=== PATIENT | male | born 1965 | race Caucasian/White ===

== ENCOUNTER 2017-05-05 11:56 | Observation (INO) | payer BC, OTHER ==
[~2017-05-05] VITALS: Ht 182.9 cm; Wt 125.2 kg
--- NOTE | ~2017-05-05 | EKG ---
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
[~2017-05-05 11:56] MED LIST: ADDERALL 30 MG30 MG PO; ADULT LOW DOSE81 MG PO; ALAVERT10 MG; AMBIEN 10 MG TA10 MG PO; ATIVAN2 MG PO; CLARITIN10 MG PO; GEODON20 MG PO; GEODON40 MG; GEODON80 MG PO; GLUCOPHAGE1000 MG; GLUCOPHAGE1000 MG PO; GLUCOPHAGE500 MG PO; HYDROCODON-ACE1 EAC4 PO; HYDROCODONE-AP1 EA12 PO; IBUPROFEN 600600 M1 PO; INVOKANA300 MG PO; LAMICTAL 25 MG25 M1; LEVEMIR SUBQ; LISINOPRIL10 MG PO; LORAZEPAM 2MG TA2 M1 PO; MULTI VITAMIN1 EACH PO; NORCO 10-325 T1 EACH PO; NORCO 5-325 TA1 EACH PO; PERCOCET 5-3251 EACH PO; PHENERGAN 25 MG25 M1 PO; PHENERGAN50 MG RC; PROPRANOLOL 1010 M1 PO; PROPRANOLOL 8080 M1 PO; SEROQUEL 100 M100 M1; TOPROL XL100 MG PO; TRADJENTA5 MG PO; VALIUM5 MG PO; ZOFRAN ODT4 MG PO
[2017-05-05 11:57] VITALS: BP 135/80
[2017-05-05 12:18] LABS: ABSOLUTE NEUTROPHILS 3.8 thou/uL (1.4-8.2); BASOPHILS 1.2 % (0.0-2.0); EOSINOPHILS 1.2 % (0.0-3.0); HEMATOCRIT 47.4 % (42.0-52.0); HEMOGLOBIN 16.3 gm/dL (14.0-18.0); LYMPHOCYTES 29.7 % (24.0-44.0); MCH 31.3 pg (26.0-34.0); MCHC 34.5 g/dL (28.0-37.0); MCV 90.6 fL (80.0-100.0); MONOCYTES 9.9 % (1.0-8.0); PLATELET COUNT 134 thou/uL (150-400); RBC 5.23 mil/uL (4.50-6.00); RDW 13.8 % (10.5-14.5); WBC 6.5 thou/uL (4.0-11.0)
[2017-05-05 12:25] LABS: CALCIUM 9.6 mg/dL (8.5-10.1); CREATININE 1.1 mg/dL (0.7-1.3); POTASSIUM 3.9 mmol/L (3.5-5.1)
[2017-05-05 12:27] LABS: MANUAL DIFF NO
[2017-05-05 12:53] LABS: APTT 27.3 Seconds (24.5-32.8); INR 1.1
[2017-05-05 12:57] LABS: PROTIME 11.4 Seconds (9.3-11.4)
[2017-05-05] MEDS ORDERED: GLUCOPHAGE500 MG PO (13:10)
[2017-05-05] MEDS ORDERED: OSTERA TABLET1 EAC1 PO (13:11)
[2017-05-05] MEDS ORDERED: CHILDREN'S ASPI81 M1 PO (13:12)
[2017-05-05 14:11] LABS: ABG SAMPLE TYPE ARTERIAL; BE(vivo) 0 mmol/L (-2 to +3); HCO3 24.8 mmol/L (22.0-26.0); LACTATE 2.83 mmol/L (0.5-2.0); O2(CT) 20.9 mL/dL (15.0-23.0); O2Hb 92.4 % (92.0-98.0); PCO2 40.9 mmHg (35.0-45.0); PO2 71.6 mmHg (80.0-100.0); STICK SITE R.RADIAL; pH 7.401 (7.360-7.450); sO2 94.5 % (92.0-98.0); tCO2 26.1 mmol/L (24.0-30.0)
[2017-05-05 15:08] VITALS: BP 116/71
[2017-05-05 15:19] VITALS: BP 116/71
[2017-05-05 15:24] LABS: CHOLESTEROL 168 mg/dL (<200); HDL CHOLESTEROL 56 mg/dL (>40); LDL CHOLESTEROL 77 mg/dL (<100); TRIGLYCERIDE 175 mg/dL (<150); VLDL 35 mg/dL (<40)
[2017-05-05 16:00] VITALS: BP 121/74
[2017-05-05 20:00] VITALS: BP 125/76
[2017-05-06 06:12] LABS: GLYCOHEMOGLOBIN (HGB A1C) 7.2 % (4.8-5.6)
[2017-05-06 07:36] VITALS: BP 114/75
[2017-05-06] MEDS ORDERED: AMBIEN 5 MG TABL5 M1 PO (10:26)
[2017-05-06 10:41] VITALS: BP 114/75
== END 2017-05-06 11:04 | disposition home or self-care (01) ==
LOC: ER 11:56 → EROBS 13:45 → 4E 13:45
PROVIDERS: Emergency Medicine; Hospitalist
DX: R41.82 Altered mental status, unspecified (principal); F98.8 Other specified behavioral and emotional disorders with onset usually occurring in childhood and adolescence; M79.7 Fibromyalgia; C02.9 Malignant neoplasm of tongue, unspecified; K63.5 Polyp of colon; I10 Essential (primary) hypertension; J45.909 Unspecified asthma, uncomplicated; K21.9 Gastro-esophageal reflux disease without esophagitis; E11.9 Type 2 diabetes mellitus without complications; K01.1 Impacted teeth; Z72.89 Other problems related to lifestyle

== ENCOUNTER 2017-06-15 18:59 | Emergency (ER) | payer BC, OTHER ==
[~2017-06-15] VITALS: Ht 182.9 cm; Wt 125.2 kg
[~2017-06-15 18:59] MED LIST changes: +AMBIEN 5 MG TABL5 M1 PO; +CHILDREN'S ASPI81 M1 PO; +OSTERA TABLET1 EAC1 PO
[2017-06-15 20:06] LABS: ABSOLUTE NEUTROPHILS 4.7 thou/uL (1.4-8.2); BASOPHILS 0.5 % (0.0-2.0); EOSINOPHILS 3.9 % (0.0-3.0); HEMATOCRIT 45.9 % (42.0-52.0); LYMPHOCYTES 21.2 % (24.0-44.0); MCH 31.9 pg (26.0-34.0); MCHC 34.9 g/dL (28.0-37.0); MCV 91.4 fL (80.0-100.0); MONOCYTES 8.1 % (1.0-8.0); PLATELET COUNT 127 thou/uL (150-400); POLYS 66.3 % (36.0-66.0); RBC 5.02 mil/uL (4.50-6.00); RDW 14.4 % (10.5-14.5); WBC 7.1 thou/uL (4.0-11.0)
[2017-06-15 20:11] LABS: MANUAL DIFF NO
[2017-06-15 21:17] VITALS: BP 140/82
== END 2017-06-15 21:18 | disposition home or self-care (01) ==
LOC: ER 18:59
PROVIDERS: Nurse Practitioner
DX: S16.1XXA Strain of muscle, fascia and tendon at neck level, initial encounter (principal); S60.211A Contusion of right wrist, initial encounter; M54.5 Low back pain; F90.9 Attention-deficit hyperactivity disorder, unspecified type; M79.7 Fibromyalgia; I10 Essential (primary) hypertension; J45.909 Unspecified asthma, uncomplicated; K21.9 Gastro-esophageal reflux disease without esophagitis; E11.9 Type 2 diabetes mellitus without complications; F31.9 Bipolar disorder, unspecified; Z79.4 Long term (current) use of insulin; Z90.89 Acquired absence of other organs; Z88.0 Allergy status to penicillin; Z88.2 Allergy status to sulfonamides; V89.2XXA Person injured in unspecified motor-vehicle accident, traffic, initial encounter; Y93.I9 Activity, other involving external motion; Y92.89 Other specified places as the place of occurrence of the external cause; Y99.8 Other external cause status

== ENCOUNTER → 2020-09-14 | Outpatient (CLI) | payer OTHER ==
[~2020-09-14] MED LIST changes: +GLUMETZA1000 PO; +HYDROCODON-ACE1 EAC5 PO; +TOPAMAX50 MG PO; +ZESTRIL40 MG PO
== END ==
LOC: HYPER 07:59
PROVIDERS: ATTEND Emergency Medicine Emergency Medical Services
DX: E11.621 Type 2 diabetes mellitus with foot ulcer (principal); L97.522 Non-pressure chronic ulcer of other part of left foot with fat layer exposed; L89.626 Pressure-induced deep tissue damage of left heel; L97.421 Non-pressure chronic ulcer of left heel and midfoot limited to breakdown of skin; E11.40 Type 2 diabetes mellitus with diabetic neuropathy, unspecified; E11.69 Type 2 diabetes mellitus with other specified complication; M86.172 Other acute osteomyelitis, left ankle and foot; J45.909 Unspecified asthma, uncomplicated; R60.9 Edema, unspecified; L84 Corns and callosities; I10 Essential (primary) hypertension; M06.9 Rheumatoid arthritis, unspecified; F41.9 Anxiety disorder, unspecified; F32.9 Major depressive disorder, single episode, unspecified; Z87.891 Personal history of nicotine dependence; Z85.89 Personal history of malignant neoplasm of other organs and systems; Z79.4 Long term (current) use of insulin; Z98.1 Arthrodesis status

== ENCOUNTER 2020-09-15 15:36 | Inpatient (IN) | payer OTHER ==
[~2020-09-15] VITALS: Ht 180.3 cm; Wt 122.9 kg
--- NOTE | ~2020-09-15 | O ---
[facility] [place] [address] OPERATIVE REPORT Name: RUEL LEE Room #: 456-P ADM IN M.R.#: [id number] Admission: 09/15/20 Attend Phys: Zac Cortes MD Discharge: Date of : 61 Report #: [id number] THIS REPORT FOR: cc: Diego Calvo MD, Steven A. MD VanDenBerghe, Gregory R. MD ~ DATE OF SERVICE: 09/19/2020 PREOPERATIVE DIAGNOSES: Left foot plantar based ulcers, fourth and fifth ray osteomyelitis, forefoot cellulitis. POSTOPERATIVE DIAGNOSES: Left foot plantar based ulcers, fourth and fifth ray osteomyelitis, forefoot cellulitis. PROCEDURE PERFORMED: Left foot debridement of plantar based ulcers. SURGEON: Red Davis MD VP INFORMATION TECHNOLOGY: Binta Edmondson PA-C. ANESTHESIA: General per LMA. FLUIDS: Please see anesthesia records. ESTIMATED BLOOD LOSS: Approximately 25 mL. DESCRIPTION OF PROCEDURE: I reviewed treatment options with the patient and his . We discussed his underlying diabetes, chronic nature of his foot condition as well as his ultrasound studies and most recent MRI. We discussed with the ulcers as well as the underlying osteomyelitis that it would be highly unlikely that a soft tissue type debridement procedure alone would aid to any significant degree in healing of his underlying osteomyelitis, cellulitis and ulcers. We reviewed that a debridement or resection of the involved bony structures would lead to a higher likelihood of being able to rid the infection, but with near complete involvement of the fourth metatarsal noted on the MRI and the location of his ulcers that may lead to difficulty in having adequate soft tissues to close around the remaining intact more medially based foot as well as providing a stable platform for ambulating. We discussed one could consider an amputation more proximally based as well, which would involve a below-knee amputation. This may provide him the quickest means with a return to ambulation. As we discussed these various options, the patient and his elected to consent only to a soft tissue debridement and did not want any bony resection or amputation. We discussed if his infection persists and/or worsens that this may be, requirement. We discussed potential spread of this infection further including into the bloodstream to where he could become more ill or [facility] [address] [place] [address] OPERATIVE REPORT Name: RUEL LEE Room #: 456-P ADM IN .R.#: [id number] Admission: 09/15/20 Attend Phys: Zac Cortes MD Discharge: Date of : 61 Report #: [id number] septic in nature. They were aware of these potential complications and wished to continue with the IV antibiotics, wound care treatments and just a soft tissue debridement of his plantarly based wounds. At this point, he was brought back to the operative suite, and after induction of satisfactory general anesthesia, the bad tissue or ulcers were debrided sharply back to punctate bleeding tissues. This was through the dermal layer on both of these ulcers, which measured approximately 3 x 3 in 1 location and 5 x 6 cm in the other location. There is a small amount of subq/dermal duskiness about the heel, although no discrete ulcer was noted. Extensive soft tissue edema within the forefoot extending up into the leg was noted. There appeared to be no other areas of soft tissue in need of debridement. No abscess type collections were noted and based on the request no bony resection, amputation or debridement was performed. We discussed continuing wound care involvement and depending on how his bone and soft tissues respond to continued treatment, we discussed the potential high likelihood of requiring further surgical intervention. By: 1502 1616 Red Davis MD /nt
[~2020-09-15 15:36] MED LIST changes: -GLUMETZA1000 PO; -HYDROCODON-ACE1 EAC5 PO; -TOPAMAX50 MG PO; -ZESTRIL40 MG PO
[2020-09-15 15:39] VITALS: BP 137/81
[2020-09-15 15:58] LABS: ABSOLUTE NEUTROPHILS 3.5 thou/uL (1.4-8.2); BASOPHILS 0.4 % (0.0-2.0); EOSINOPHILS 1.9 % (0.0-3.0); HEMATOCRIT 37.9 % (42.0-52.0); HEMOGLOBIN 12.8 gm/dL (14.0-18.0); MCH 32.3 pg (26.0-34.0); MCHC 33.8 g/dL (28.0-37.0); MCV 95.6 fL (80.0-100.0); MONOCYTES 8.1 % (1.0-8.0); PLATELET COUNT 151 thou/uL (150-400); POLYS 59.6 % (36.0-66.0); RBC 3.96 mil/uL (4.50-6.00); RDW 12.6 % (10.5-14.5); WBC 5.8 thou/uL (4.0-11.0)
[2020-09-15 16:13] LABS: CALCIUM 9.2 mg/dL (8.5-10.1); POTASSIUM 3.3 mmol/L (3.5-5.1)
[2020-09-15 16:16] LABS: ALBUMIN 2.8 g/dL (3.4-5.0); DIRECT BILIRUBIN 0.3 mg/dL (<0.1-0.2); TOTAL BILIRUBIN 0.8 mg/dL (0.2-1.0); TOTAL PROTEIN 6.8 g/dL (6.4-8.2)
[2020-09-15] MEDS ORDERED: ZESTRIL40 MG PO (16:39)
[2020-09-15] MEDS ORDERED: GLUMETZA1000 PO (16:40)
[2020-09-15] MEDS ORDERED: GEODON80 MG PO (16:40)
[2020-09-15] MEDS ORDERED: TOPAMAX50 MG PO (16:41)
[2020-09-15] MEDS ORDERED: HYDROCODON-ACE1 EAC5 PO (16:41)
[2020-09-15 17:57] LABS: URINE BILIRUBIN NEGATIVE (Negative); URINE BLOOD NEGATIVE (Negative); URINE CLARITY CLEAR; URINE COLOR YELLOW; URINE GLUCOSE-RANDOM* NEGATIVE (Negative); URINE KETONES NEGATIVE (Negative); URINE LEUKOCYTES-REFLEX NEGATIVE (Negative); URINE NITRITE-REFLEX NEGATIVE (Negative); URINE PROTEIN (DIPSTICK) NEGATIVE (Negative)
[2020-09-16 02:03] LABS: HEMATOCRIT 34.7 % (42.0-52.0); HEMOGLOBIN 11.9 gm/dL (14.0-18.0); MCH 32.6 pg (26.0-34.0); MCHC 34.3 g/dL (28.0-37.0); MCV 95.1 fL (80.0-100.0); RBC 3.65 mil/uL (4.50-6.00); RDW 12.7 % (10.5-14.5)
[2020-09-16 02:14] LABS: CALCIUM 8.9 mg/dL (8.5-10.1); CREATININE 0.9 mg/dL (0.7-1.3); MAGNESIUM 1.2 mg/dL (1.8-2.4); POTASSIUM 3.6 mmol/L (3.5-5.1)
[2020-09-16 02:23] LABS: APTT 28.3 Seconds (24.5-32.8); INR 1.2; PROTIME 12.7 Seconds (9.3-11.4)
[2020-09-16 06:44] VITALS: BP 100/61
[2020-09-16 07:27] VITALS: BP 99/56
--- NOTE | 2020-09-16 09:34 | NUR ---
ASSUMED PT CARE AT 0715 UPON TRANSFER FROM ED. PT HAS TWO WOUNDS ON THE BOTTOM OF THE LEFT FOOT, MEASURING [id number] AND 3YTO7MG. WOUND PICTURES TAKEN, WOUND DRESSED IT HAD A SMALL AMOUNT OF BLOOD. PT A&OX4, PLEASANT AND COOPERATIVE. CALLS OUT WHEN NEEDED. REPORTS PAIN IN THE LEFT FOOT WELL GENERALIZED PAIN FROM FIBROMYALGIA. FALLS PRECAUTIONS IN PLACE.
[2020-09-16 15:27] VITALS: BP 123/60
[2020-09-16 20:12] VITALS: BP 117/64
[2020-09-17 05:20] VITALS: BP 134/79
--- NOTE | 2020-09-17 07:14 | HC ---
[facility] [place] [address] CONSULTATION Name: RUEL LEE Room #: 456-P ADM IN M.R.#: [id number] Admission: 09/15/20 Attend Phys: Zac Cortes MD Discharge: Date of : 61 Report #: [id number] THIS REPORT FOR: cc: Diego Calvo MD, Steven A. MD Barry,Ananda Romero MD ~ DATE OF SERVICE: 09/16/2020 INFECTIOUS DISEASE CONSULTATION ATTENDING PHYSICIAN: Dr. Cortes REASON FOR EVALUATION: Diabetic foot ulcer, likely osteomyelitis involving the left fourth toe. HISTORY OF SUBJECTIVE: Chart reviewed, patient examined. This is a 54-year-old gentleman with known history of diabetes mellitus, has been complicated by peripheral neuropathy. He has had a longstanding wound associated with his foot, had been followed as an outpatient. He was [facility] more recently and he was referred to the Emergency Room, felt that it was progressive and likely had deep seated infection. He denies significant systemic illness. His blood sugars were mildly elevated. No pulmonary or gastrointestinal related complaints. Found to have an elevated lactic acid of 3.7. Plain film of the foot, there is question of fourth metatarsal extending to the fourth MTP joint near the proximal phalanx changes that would question osteomyelitis. Sed rate was 63. He did have coronavirus testing, which was negative. He was empirically started on vancomycin. Cultures of the blood and fluid are pending. Gram-stain is not available. ALLERGIES: PENICILLIN WHICH HE DESCRIBES WHAT SOUNDS LIKE A TYPE 1 OR ANAPHYLACTIC REACTION AND SULFA. CURRENT MEDICATIONS: Include insulin glargine, topiramate, lisinopril, metformin, insulin lispro, vancomycin, lorazepam, ziprasidone, hydrocodone. PAST MEDICAL HISTORY: Diabetes mellitus complicated by peripheral neuropathy, chronic ulceration involving his left foot. He has a carcinoma of the tongue, radiation surgery in 1998, hypertension, asthma, reflux, bipolar disease, ADD, fibromyalgia. SOCIAL HISTORY: Nonsmoker, past ethanol, no illicit drug use. FAMILY HISTORY: Noncontributory. REVIEW OF SYSTEMS: Otherwise unremarkable, except as noted above. [address] [address] CONSULTATION Name: RUEL LEE Room #: 456-P [facility] IN ..#: [id number] Admission: 09/15/20 Attend Phys: Zac Cortes MD Discharge: Date of : 61 Report #: [id number] PHYSICAL EXAMINATION: GENERAL: Reasonably comfortable, mild distress, adequately nourished. VITAL SIGNS: Temperature 98.5, pulse 87, respirations 18, blood pressure 99/56. SKIN: Warm, dry, no rashes. HEENT: Normocephalic. Extraocular muscles are intact. NECK: Supple. LUNGS: Clear breath sounds bilaterally. HEART: Regular. I do not appreciate murmur. ABDOMEN: Soft, obese, nontender. EXTREMITIES: Got a compression dressing over the left distal lower extremity to include the leg, appears to have a general edema bilaterally. GENITOURINARY AND RECTAL: Deferred. LABORATORY DATA: Recent lactic acid of 2.1. Electrolytes: Sodium 141, potassium 3.6, chloride 107, bicarbonate is 24, anion gap of 10, BUN and creatinine 8 and 0.9, glucose of 171. CBC: White count 5.0, H and H 11.9 and 34.7, platelets of 124. Coronavirus testing was negative. Urinalysis was otherwise unremarkable. No proteinuria. Sed rate of 63. ASSESSMENT AND PLAN: Suspected deep infection, likely osteomyelitis involving the fourth left metatarsal. We will continue empiric therapy with vancomycin; add some gram-negative coverage as well, pending the results of the culture. Noted Orthopedic Surgery to evaluate. We will await their recommendations. Defer MRI evaluation pending their impression whether they think they are needed to further assist in their decision making. We will follow. <ELECTRONICALLY SIGNED> By: Ananda Goss MD 09/17/20 0714 0917 1059 Ananda Goss MD /nt
--- NOTE | 2020-09-17 07:56 | HC ---
[facility] [place] [address] CONSULTATION Name: RUEL LEE Room #: 456-P ADM IN M.R.#: [id number] Admission: 09/15/20 Attend Phys: Zac Cortes MD Discharge: Date of : 61 Report #: [id number] THIS REPORT FOR: cc: Diego Calvo MD, Steven A. MD Althoff,Booker Leos MD ~ DATE OF SERVICE: 09/16/2020 CHIEF COMPLAINT: Diabetic foot ulceration. HISTORY OF PRESENT ILLNESS: This is a 54-year-old male patient who has been followed by Dr. Piyush Damon, was found to have osteomyelitis of the right fourth and fifth metatarsals. Dr. Damon had asked him to see me in the clinic, which I did on Thursday. At that time, I recommended admission. The patient was not quite able to make admission on Thursday due to some other professional issues that he needed to take care of. He arrived yesterday evening in the Emergency Department, was admitted. He has had previous MRI that demonstrated osteomyelitis. He has been seen by Orthopedics. There has been a suggestion of possible below-knee amputation. The patient is quite worried about this, but understands he will need some sort of surgical intervention for treatment of the osteomyelitis. PAST MEDICAL HISTORY: Positive for history of ADD, fibromyalgia. He has a history of tongue cancer, hypertension, type 2 diabetes mellitus, history of bipolar disorder. FAMILY HISTORY: Positive for diabetes. SOCIAL HISTORY: Negative for alcohol or tobacco use. 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 MEDICATIONS: Includes lorazepam, Adderall, Levemir, Ostera, Zestril, Glumetza, Geodon, Topamax. ALLERGIES: PENICILLIN AND SULFA. REVIEW OF SYSTEMS: CONSTITUTIONAL: The patient denies fever, chills or weight loss. NEUROLOGICAL: The patient denies focal weakness. Does have peripheral neuropathy. ENT: The patient denies earache, nasal drainage or sore throat. CARDIOVASCULAR: The patient denies chest pain, palpitations or diaphoresis. PULMONARY: The patient denies cough or shortness of breath. GASTROINTESTINAL: The patient denies nausea, vomiting, diarrhea or abdominal pain. [facility] [address] [place] [address] CONSULTATION Name: RUEL LEE Room #: 456-P [facility] IN [facility].#: [id number] Admission: 09/15/20 Attend Phys: Zac Cortes MD Discharge: Date of : 61 Report #: [id number] ORTHOPEDIC: The patient does note the ulcerations of his left foot as well as a small area on the right fifth MTP. Other systems in a 14-point review of systems are negative. PHYSICAL EXAMINATION: VITAL SIGNS: At this time include temperature 36.8, pulse 87, respiratory rate 18, blood pressure 123/60. GENERAL: A well-developed, well-nourished male patient who appears to be in minimal distress. HEENT: Head normocephalic. Nose and throat clear. NECK: Supple. LUNGS: Clear. ABDOMEN: Soft. Bowel sounds are present. EXTREMITIES: Examination of the extremities demonstrate palpable distal pulses. His feet are a bit warm and erythematous, more so on the left than on the right. He has a necrotic ulceration at the base of the right fifth metatarsal as well as some ulceration and small eschar along the left medial heel. He has a preulcer callus and soft area on the right fifth MTP as well. NEUROLOGIC: The patient is alert, oriented and appropriate. LABORATORY STUDIES: Include white blood cell count 5001, hemoglobin 11.9, hematocrit 34.7. Sodium 141, potassium 3.6, chloride 107, CO2 of 24, BUN 8, creatinine 0.9, glucose 171. X-ray demonstrates osteomyelitis, fourth and fifth metatarsal. Outpatient MRI demonstrates osteomyelitis, fourth and fifth metatarsal. CLINICAL IMPRESSION: 1. Diabetic foot ulceration, left foot, Barnett 3 with underlying osteomyelitis of the fourth and fifth metatarsals. 2. Type 2 diabetes mellitus with peripheral neuropathy. 3. Preulceration callus to the right fifth MTP. RECOMMENDATIONS: At this point in time, the patient is quite concerned, the orthopedic surgeon has made the suggestion of a possible below-knee amputation. We will recheck an MRI of both feet, in particular looking for any osteomyelitic changes or abscess to the heel area. The patient would like if at all possible to preserve some portion of his foot for ambulatory purposes. We will place dry dressings on for now. I appreciate being asked to see him in consultation. <ELECTRONICALLY SIGNED> By: Booker Jay MD 09/17/20 0756 1632 52 Booker Jay MD /nt
--- NOTE | 2020-09-17 07:57 | NUR ---
Assumed pt care at 1900. A/OX4,VSS. Continent of B&B,voiding per urinal. Dsg in place on left foot C/D/I. Pt to get an MRI of bilateral feet,paperwork completed and faxed. IV abts infusing via LAC w/o any problems.
[2020-09-17 08:04] VITALS: BP 125/82
--- NOTE | 2020-09-17 09:45 | NUR ---
Assess due to pt with diabetic foot wound x 2. Surgical consult pending. Pt stated hungry this am, breakfast tray was on window seal and RN assisted with set up. Pt not very talkative, not making eye contact during conversation. States BG are good at home and no questions reqarding diet. Tries to eat mostly protein. Low nutrition risk
--- NOTE | 2020-09-17 11:47 | NUR ---
Received awake on bed. Due medications given as prescribed, able to swallow meds w/o difficulty. On room air. Vital signs stable. On MS, not on telemetry; no complains and signs of chest pain, crushing sensation and heaviness. On carb controlled diet- tolerating well; no nausea, no vomiting and no abdominal pain noted. On blood sugar monitoring, taken and recorded accordingly. Continent of bowel and bladder, using urinal at times. With SL at L AC- on IV antibiotics. With L foot wound, dressing C/D/I; seen by wound team today; dressing changed. Complained of pain, due PRN pain meds given as prescribed. Pt for MRI of bilateral feet- screening form completed and faxed; as per MRI staff all MRI needs approval by general medical practitioner- Wound nurse Adriana updated. Followed up with MRI at 1218pm- still ongoing outpatient procedures, will call unit once it's pt's turn- pt updated. To continue monitoring patient.
[2020-09-17 16:20] VITALS: BP 132/87
[2020-09-17 20:26] VITALS: BP 132/78
--- NOTE | 2020-09-18 04:45 | NUR ---
ASSUMED CARE OF PT AT 1900. PT IS A/O X4 AND IS UP WITH SBA TO THE BR. NO INSULIN GIVEN AT HS IS NOT INDICATED. MEDICATIONS GIVEN PER MAR. ROOM AIR. DRSGS TO LEFT FOOT ARE C/D/I. C/O PAIN. PRN PAIN MEDICATION GIVEN DIRECTED. FALL PRECAUTIONS ARE IN PLACE, CALL LIGHT IS WITHIN REACH. WILL CONTINUE TO MONITOR.
[2020-09-18 10:28] VITALS: BP 117/67
--- NOTE | 2020-09-18 13:43 | NUR ---
Pt down at pre-op during shift change this morning. Back to freedman around 8:30am. Received awake on bed. Due medications given as prescribed. On room air. Vital signs stable. On MS, not on telemetry; no complains and signs of chest pain, crushing sensation and heaviness. Assisted in ADLs. On nothing per orem- pt informed and aware; no nausea, no vomiting and no abdominal pain noted. On blood sugar monitoring, taken and recorded accordingly. Continent of bowel and bladder, able to use the urina. With SL at R FA- intact and flushing well; on IV antibiotics. Falls bundle in place. With wound at L foot- no dressing in place; changed today. Complained of pain, due PRN pain meds given as prescribed. MRI called, brought pt down via wheelchair; MRI staff called and said pt initially scheduled to have bilateral feet MRI; since R foot is intact and no open area, they said no indication to have it done- thus cancelled and will just do L foot- Wound team informed. Back to room safely. Diet resumed for lunch and dinner since pt to have surgery tomorrow afternoon instead. Pt seen and examined by Dr Bosch this AM. To continue monitoring patient.
[2020-09-18 14:15] VITALS: BP 113/72
--- NOTE | 2020-09-18 14:46 | NUR ---
PT ADMITTED RELATED TO DIABETIC FOOT ULCER, OSTEO, HYPERGLYCEMIA. CM REVIEWED CHART AND SPOKE WITH CARE TEAM. CM HAS ATTEMPTED TO SPEAK WITH PT VIA PHONE REPEATEDLY SINCE ADMISSION WITH NO ANSWER. CM ATTEMPTED TO VIST PT AT BEDSIDE THIS DAY PT WAS SLEEPING. CM SPOKE WITH PT'S . SHE INDICATED THEY RESIDE IN A HOUSE WITH 12 STEPS TO ENTER IN BACK, 10 THROUGH GARAGE, AND THREE DIFFICULT STEPS IN FRONT. SPOUSE INDICATED THAT PT HAD USED A CANE TO ASSIST WITH MOBILITY CHIEF SECURITY AND SAFETY OFFICER. SHE INDICATED THAT SHE HAD DONE WC AND ASSISTED PT WITH SOCKS AND SHOES CHIEF SECURITY AND SAFETY OFFICER. SHE STATED THAT PT HAD OTHERWISE BEEN INDEPENDENT WITH ADLS. SHE INDICATED NO HH HX. SHE STATED THAT PT IS FRUSTRATED HE DOESN'T KNOW WHO HIS DOCTORS ARE AND WHAT KIND OF SURGERY HE IS HAVING AT 1400 TOMORROW. CM TO CONVEY THIS TO CARE TEAM. PT HAD MRI TODAY. POSSIBLE BKA OR DEBRIDEMENT. CM TO FOLLOW INDICATED WITH DC PLANNING.
[2020-09-18 19:34] VITALS: BP 125/82
--- NOTE | 2020-09-19 04:35 | NUR ---
ASSUMED CARE OF PT AT 0300. PT IS A/O X4 AND IS UP WITH ASSISTANCE TO THE BR. PT IS ON ROOM AIR AND IS CURRENTLY MS STATUS. DRSG TO LEFT FOOT IS C/D/I. NEW IV PLACED IN LEFT FA. NPO SINCE MIDNIGHT AWAITING PROCEDURE IN THE AM. VSS. FALL PRECAUTIONS IMPLEMENTED, CALL LIGHT IS WITHIN REACH.
[2020-09-19 07:55] VITALS: BP 95/65
[2020-09-19 16:25] VITALS: BP 126/74
[2020-09-19 17:10] VITALS: BP 117/68
[2020-09-19 18:15] VITALS: BP 121/76
--- NOTE | 2020-09-19 19:54 | NUR ---
Received awake on bed. On nothing per orem, mouth swabs offered. On MS, not on telemetry; no complains and signs of chest pain, crushing sensation and heaviness. On room air. Vital signs stable. On blood sugar monitoring, taken and recorded accordingly. Continent of bowel and bladder, able to use urinal- output measured and recorded accordingly. Falls bundle in place. With SL at L FA- on IV antibiotics. Dressing at L foot- C/D/I- pt refused dressing change today, will be going down for OR this afternoon. Assisted in ADLs. No nausea, no vomiting and no abdominal pain noted. Pt brought down to OR this afternoon; tolerated procedure well; vital signs post op stable. Post op dressing checked- C/D/I- no signs of bleeding noted; kept elevated; pt informed re: weight bearing status- heel wt bearing. Pt's visited this PM- update given. Complained of pain, due PRN pain meds given as prescribed. To continue monitoring patient.
[2020-09-19 20:20] VITALS: BP 130/76
--- NOTE | 2020-09-20 07:24 | NUR ---
VSS-AFEBRILE. LUNGS CLEAR-ROOM AIR. PAIN WELL CONTROLLED WITH IV AND PO PAIN MEDS. LEFT FOOT DRESSING DRY AND INTACT.
[2020-09-20 07:44] VITALS: BP 110/64
--- NOTE | 2020-09-20 10:04 | NUR ---
called and asked about the discharge time: [phone]).
[2020-09-20] MEDS ORDERED: LEVOFLOXACIN500 MG PO ×2 (11:24→13:37)
[2020-09-20] MEDS ORDERED: CUBICIN500 MG IVPB (11:24)
[2020-09-20 11:34] VITALS: BP 110/64
[2020-09-20 12:28] VITALS: BP 110/64
--- NOTE | 2020-09-20 13:03 | NUR ---
VASCULAR ACCESS CONSULTED FOR PICC FOR HOME ABX. DISCUSSED BENEFITS AND RISK OF PICC WITH PT, VERBALIZED UNDERSTANDING. PT'S LABS,MEDS,HX ,ORDER AND CONSENT VERIFIED. REN LOPEZ WAS WIDELY PATENT WITH USG. 4FR SL POWER PICC TRIMMED TO 45CM INSERTED TO 0CM. PT TOLERATED WELL. STAT CXR ORDERED
[2020-09-20] MEDS ORDERED: VANCOMYCIN IV ×2 (13:24→13:27)
[2020-09-20] MEDS ORDERED: VANCOMYCIN1.5 GM/300 IV (13:36)
--- NOTE | 2020-09-20 13:40 | NUR ---
CXR CONFIRMED PICC IN SVC. PICC RELEASED FOR IMMEDIATE USE PER PROTOCOL TO CAROLE BEE
--- NOTE | 2020-09-20 14:06 | NUR ---
Patient being discharged home today with [facility] home infusion. DCP has been in touch and out of pocket expense will be 59.78 per week and billed under the patients part D coverage. ID and Hospitalist have confirmed orders. Bedside teaching with patient taking place and will be taught upon discharge to home. [facility] has accepted and will be out to see patient including admissions assessment and first lab draw on 09-24-2020. DCP confirmed all orders have been faxed and accepted by both [facility] and [email or web address]. Called and spoke with spouse Awilda Gallegos at [phone] and explained above. voiced an understanding. Spoke with the nurse Braeden and confirmed above who will call for pickup time and which door location.
[2020-09-20 14:12] VITALS: BP 110/64
--- NOTE | 2020-09-20 14:15 | NUR ---
Patient discharge, medication prescription was sent to patient't pharmacy.
--- NOTE | 2020-09-20 14:27 | NUR ---
Patient discharged with PICC.
== END 2020-09-20 14:30 | disposition home health service (06) | DRG 623 ==
LOC: ER 15:36 → 4W 18:13 → EROBS 18:13 → 4W 09-16 07:07
PROVIDERS: Nurse Practitioner; ADMIT Internal Medicine; ATTEND Internal Medicine
PROC: 0JBR0ZZ Excision of Left Foot Subcutaneous Tissue and Fascia, Open Approach (ICD-10-PCS; principal; 2020-09-19)
PROC: 02HV33Z Insertion of Infusion Device into Superior Vena Cava, Percutaneous Approach (ICD-10-PCS; 2020-09-20)
DX: E11.622 Type 2 diabetes mellitus with other skin ulcer (principal); L03.116 Cellulitis of left lower limb; L97.429 Non-pressure chronic ulcer of left heel and midfoot with unspecified severity; E44.0 Moderate protein-calorie malnutrition; M86.172 Other acute osteomyelitis, left ankle and foot; E11.69 Type 2 diabetes mellitus with other specified complication; Z20.828 Contact with and (suspected) exposure to other viral communicable diseases; I10 Essential (primary) hypertension; J45.909 Unspecified asthma, uncomplicated; F31.9 Bipolar disorder, unspecified; E11.65 Type 2 diabetes mellitus with hyperglycemia; E11.42 Type 2 diabetes mellitus with diabetic polyneuropathy; E66.01 Morbid (severe) obesity due to excess calories; K21.9 Gastro-esophageal reflux disease without esophagitis; G89.4 Chronic pain syndrome; M79.7 Fibromyalgia; F98.8 Other specified behavioral and emotional disorders with onset usually occurring in childhood and adolescence; Z79.891 Long term (current) use of opiate analgesic; Z87.81 Personal history of (healed) traumatic fracture; Z79.899 Other long term (current) drug therapy; Z86.010 Personal history of colon polyps; Z88.0 Allergy status to penicillin; Z88.2 Allergy status to sulfonamides; Z83.3 Family history of diabetes mellitus; Z68.37 Body mass index [BMI] 37.0-37.9, adult
CPT/HCPCS: 10040; 27000; 50010; 50101; 50386; 53000; 56524; 56525; 56527; 57091; 57180; 62110; 62900; 70005

== ENCOUNTER → 2020-09-25 | Outpatient (CLI) | payer OTHER ==
[~2020-09-25] MED LIST changes: +CUBICIN500 MG IVPB; +GLUMETZA1000 PO; +HYDROCODON-ACE1 EAC5 PO; +LEVOFLOXACIN500 MG PO; +TOPAMAX50 MG PO; +VANCOMYCIN IV; +VANCOMYCIN1.5 GM/300 IV; +ZESTRIL40 MG PO
== END ==
LOC: HYPER 10:46
PROVIDERS: ATTEND Emergency Medicine
DX: E11.621 Type 2 diabetes mellitus with foot ulcer (principal); L97.522 Non-pressure chronic ulcer of other part of left foot with fat layer exposed; L89.626 Pressure-induced deep tissue damage of left heel; L97.421 Non-pressure chronic ulcer of left heel and midfoot limited to breakdown of skin; L84 Corns and callosities; E11.40 Type 2 diabetes mellitus with diabetic neuropathy, unspecified; E11.69 Type 2 diabetes mellitus with other specified complication; M86.172 Other acute osteomyelitis, left ankle and foot; E66.9 Obesity, unspecified; J45.909 Unspecified asthma, uncomplicated; R60.9 Edema, unspecified; I10 Essential (primary) hypertension; M06.9 Rheumatoid arthritis, unspecified; F41.9 Anxiety disorder, unspecified; F31.9 Bipolar disorder, unspecified; Z87.891 Personal history of nicotine dependence; Z85.89 Personal history of malignant neoplasm of other organs and systems; Z79.4 Long term (current) use of insulin; Z98.1 Arthrodesis status; Z68.36 Body mass index [BMI] 36.0-36.9, adult; Z89.422 Acquired absence of other left toe(s)

== ENCOUNTER → 2020-10-05 | Outpatient (CLI) | payer OTHER | LOC: HYPER 08:01 | PROVIDERS: ATTEND Emergency Medicine Emergency Medical Services | DX: E11.621 Type 2 diabetes mellitus with foot ulcer (principal); L97.522 Non-pressure chronic ulcer of other part of left foot with fat layer exposed; L97.511 Non-pressure chronic ulcer of other part of right foot limited to breakdown of skin; L89.626 Pressure-induced deep tissue damage of left heel; L97.421 Non-pressure chronic ulcer of left heel and midfoot limited to breakdown of skin; E11.69 Type 2 diabetes mellitus with other specified complication; M86.172 Other acute osteomyelitis, left ankle and foot; R60.9 Edema, unspecified; L84 Corns and callosities; R21 Rash and other nonspecific skin eruption; E66.9 Obesity, unspecified; M19.90 Unspecified osteoarthritis, unspecified site; J45.909 Unspecified asthma, uncomplicated; I10 Essential (primary) hypertension; F41.9 Anxiety disorder, unspecified; Z68.36 Body mass index [BMI] 36.0-36.9, adult; Z79.4 Long term (current) use of insulin; Z89.422 Acquired absence of other left toe(s); E11.40 Type 2 diabetes mellitus with diabetic neuropathy, unspecified; M06.9 Rheumatoid arthritis, unspecified; F31.9 Bipolar disorder, unspecified; Z87.891 Personal history of nicotine dependence ==

== ENCOUNTER → 2020-10-19 | Outpatient (CLI) | payer OTHER ==
--- NOTE | 2020-10-22 15:56 | HC ---
[facility] [place] [address] CONSULTATION Name: RUEL LEE Room #: REG [facility].#: [id number] Admission: 10/19/20 Attend Phys: Booker Jay MD Discharge: Date of : 61 Report #: [id number] THIS REPORT FOR: cc: Diego Calvo MD, Steven A. MD Couchonnal, Luis F. MD ~ DATE OF SERVICE: 10/20/2020 ELECTROPHYSIOLOGY CONSULTATION REASON FOR CONSULTATION: Arrhythmias. HISTORY OF PRESENT ILLNESS: The patient is a gentleman admitted on 09/21 with COVID pneumonia. The patient was seen for atrial fibrillation earlier this hospitalization by general Cardiology when he initially came in with COVID pneumonia, had some atrial fibrillation, started on anticoagulation, had a GI bleed. Subsequently, he has had a complex hospitalization with pneumothoraces bilaterally, trach, PEG and sepsis. Yesterday, he had some short bursts of atrial tachycardia on the monitor. There was also some SVT with aberration noted. There is no evidence of recurrent atrial fibrillation. REVIEW OF SYSTEMS: Unable to obtain due to intubated state. PAST MEDICAL HISTORY: As above. SOCIAL HISTORY: Noncontributory. FAMILY HISTORY: Noncontributory. ALLERGIES: Reviewed. MEDICATIONS: Reviewed. PHYSICAL EXAMINATION: VITAL SIGNS: Stable. GENERAL: Intubated, sedated. HEENT: Oropharynx membranes are moist. NECK: Supple. HEART: Regular rate and rhythm with no ectopy or murmurs. LUNGS: Clear bilaterally. ABDOMEN: Soft, nontender. EXTREMITIES: No clubbing, cyanosis, edema. NEUROLOGIC: Cranial nerves 2-12 are intact. ASSESSMENT: Supraventricular tachycardia. [facility] [address] [place] [address] CONSULTATION Name: RUEL LEE Room #: [facility].#: [id number] Admission: 10/19/20 Attend Phys: Booker Jay MD Discharge: Date of : 61 Report #: [id number] PLAN: The patient with a short burst of atrial tachycardia. We will recommend beta jaya therapy and echo on Thursday. We will follow. <ELECTRONICALLY SIGNED> By: Thomas Huff MD 10/22/20 1556 1125 1245 Thomas Huff MD /nt
== END ==
LOC: HYPER 08:10
PROVIDERS: ATTEND Emergency Medicine Emergency Medical Services
DX: E11.621 Type 2 diabetes mellitus with foot ulcer (principal); L97.522 Non-pressure chronic ulcer of other part of left foot with fat layer exposed; L89.626 Pressure-induced deep tissue damage of left heel; L97.421 Non-pressure chronic ulcer of left heel and midfoot limited to breakdown of skin; L97.511 Non-pressure chronic ulcer of other part of right foot limited to breakdown of skin; E11.69 Type 2 diabetes mellitus with other specified complication; M86.172 Other acute osteomyelitis, left ankle and foot; E11.40 Type 2 diabetes mellitus with diabetic neuropathy, unspecified; R60.9 Edema, unspecified; L84 Corns and callosities; J45.909 Unspecified asthma, uncomplicated; I10 Essential (primary) hypertension; M06.9 Rheumatoid arthritis, unspecified; E66.9 Obesity, unspecified; F41.9 Anxiety disorder, unspecified; F31.9 Bipolar disorder, unspecified; Z68.36 Body mass index [BMI] 36.0-36.9, adult; Z79.4 Long term (current) use of insulin; Z87.891 Personal history of nicotine dependence; Z89.422 Acquired absence of other left toe(s)

== ENCOUNTER → 2020-10-26 | Outpatient (CLI) | payer OTHER ==
[~2020-10-26] MED LIST changes: +MERREM500 MG IV
[2020-10-26 08:39] VITALS: BP 99/56
--- NOTE | 2020-10-26 09:29 | NUR ---
IN FOR 1ST DOSE OF MEROPENEM FOR LEFT FOOT OSTEOMYELITIS. STATED FEELING WELL. DENIED DIARRHEA, NAUSEA, FEVER, CHILLS. PICC LINE IN PLACE TO [facility]. UNABLE TO GET BLOOD RETURN, FLUSHED EASILY. INFUSED MEROPENEM OVER 30 MINUTES AND TOLERATED WELL. CHANGED PICC DRESSING. SITE WNL. DISMISSED AMBULATORY TO WORK IN STABLE CONDITION. WEARING AN OPEN TOE BOOT ON LEFT FOOT. SCHEDULED TO RETURN NEXT THURSDAY FOR PICC DRESSING CHANGE AND LABS.
== END ==
LOC: OPONC 08:00
PROVIDERS: ATTEND Specialist
DX: M86.172 Other acute osteomyelitis, left ankle and foot (principal)
CPT/HCPCS: 95000

== ENCOUNTER → 2020-10-30 | Outpatient (CLI) | payer OTHER ==
[2020-10-30 10:54] LABS: HEMATOCRIT 37.8 % (42.0-52.0); MCH 32.2 pg (26.0-34.0); MCHC 34.3 g/dL (28.0-37.0); RBC 4.03 mil/uL (4.50-6.00); RDW 13.6 % (10.5-14.5); WBC 5.5 thou/uL (4.0-11.0)
--- NOTE | 2020-10-30 11:07 | NUR ---
IN FOR WEEKLY CENTRAL LINE LAB DRAW WITH PICC DRESSING CHANGE FOR LEFT FOOT OSTEOMYELITIS. PATIENT DOES HIS OWN INFUSIONS OF MERPENEM AT HOME. PATIENT DENIED NAUSEA, DIARRHEA, FEVER, CHILLS. STATES STILL HAS #5 PAIN TO LEFT FOOT AND TAKES HYDROCODONE FOR THIS. PICC SITE WNL. DRESSING CHANGED. [facility] FROM PICC LINE WITHOUT DIFFICULTY AND FLUSHED EASILY. PATIENT TO RETURN NEXT THURSDAY FOR THE SAME. DISMISSED IN STABLE CONDITION.
[2020-10-30 11:13] LABS: ALBUMIN 3.3 g/dL (3.4-5.0); CALCIUM 9.6 mg/dL (8.5-10.1); CREATININE 0.9 mg/dL (0.7-1.3); POTASSIUM 4.1 mmol/L (3.5-5.1); TOTAL BILIRUBIN 0.8 mg/dL (0.2-1.0); TOTAL PROTEIN 7.1 g/dL (6.4-8.2)
[2020-10-31 04:06] LABS: GLYCOHEMOGLOBIN (HGB A1C) 6.9 % (4.8-5.6)
--- NOTE | 2020-11-01 13:50 | HC ---
[facility] [place] [address] CONSULTATION Name: RUEL LEE Room #: [facility]#: [id number] Admission: 10/30/20 Attend Phys: Erasmo Romero MD Discharge: Date of : 61 Report #: [id number] THIS REPORT FOR: cc: Diego Calvo MD, Steven A. MD Stephens, Thad A. MD ~ DATE OF SERVICE: 10/30/2020 WOUND CARE CONSULTATION PERSONAL PHYSICIAN: Dr. Portillo. CHIEF COMPLAINT: Left chest wall wound, left ear ulcer, fungal rash to the gluteus. HISTORY OF PRESENT ILLNESS: This is a 54-year-old white male who has had prolonged hospital course after pneumonia and sepsis from COVID-19 infection. The patient has had bilateral pneumothoraces, requiring chest tubes. The patient now has a chest tube wound in the left anterior chest, which has been slow to heel, which we have been asked to see as well. The patient also has fungal excoriation in the sacral and gluteal region as well as an unstageable decubitus ulcer on the right lateral foot. The patient himself is sedated and unable to give much history. Nursing staff deny any other associated wounds. PAST MEDICAL HISTORY: Prior to this hospitalization was otherwise minimal. CURRENT MEDICATIONS: At this time are multiple, I reviewed the patient's medication list. DRUG ALLERGIES: SHELLFISH AND PENICILLIN. SOCIAL HISTORY: The patient does not have any history of smoking. FAMILY HISTORY AND REVIEW OF SYSTEMS: Unobtainable because of the patient's sedated state. PHYSICAL EXAMINATION: VITAL SIGNS: Stable. The patient is afebrile. GENERAL: This is a sedated white male who is in no obvious distress. HEENT: Normocephalic. There is an unstageable decubitus ulcer on the left lateral ear without anything draining, there is dry, intact eschar. Pupils are round. Mucous membranes are dry. NECK: Supple with tracheostomy in place. LUNGS: Diminished breath sounds heard throughout. CHEST: Reveals a clean and granulating wound in the left anterior chest from [address] [address] CONSULTATION Name: RUEL LEE Room #: [facility] [place]#: [id number] Admission: 10/30/20 Attend Phys: Erasmo Romero MD Discharge: Date of : 61 Report #: [id number] the previous chest tube. Dahlia-wound is otherwise intact, tunnel is approximately 3.5 cm. There is minimal serosanguineous drainage noted, but there is no significant odor and gluteal region, there is a fungal associated rash with mild excoriation maceration. Evaluation of right lateral foot reveals a resolving deep tissue injury without any open ulcers. Bilateral heels are intact. NEUROLOGIC: The patient once again is sedated on a ventilator. LABORATORY DATA: White count 5.3, hemoglobin 8.1, BUN 10, creatinine 0.4, albumin 1.7. IMPRESSION: 1. Chest wall wound, status post chest tube placement. 2. Unstageable decubitus ulcer to the superior portion of the left ear. 3. Unstageable decubitus ulcer, right lateral foot. 4. Moisture-associated dermatitis and fungal rash to the sacral-gluteal region. 5. History of COVID-19 pneumonia with respiratory failure. 6. Severe protein-calorie malnutrition, albumin 1.7. 7. Generalized debility. PLAN: We will start by placing silver alginate into the chest wall wound, change daily and cover with gauze. We will start Betadine to the left ear daily. The patient is already on a low air loss surface, we will continue this and have him turned every 2 hours. We will start antifungal moisture barrier cream to the fungal rash in the sacral-gluteal region. We will use Betadine to the right lateral foot daily. The patient needed to be in heel protection at all times. We will continue all other current medications. We will continue to follow the patient. <ELECTRONICALLY SIGNED> By: Tyrel Gray MD 11/01/20 1350 [id number] [id number] Tyrel Gray MD /nt
== END ==
LOC: OPONC 09:57
PROVIDERS: Internal Medicine; ATTEND Specialist
DX: M86.172 Other acute osteomyelitis, left ankle and foot (principal); R21 Rash and other nonspecific skin eruption; B37.89 Other sites of candidiasis; L98.499 Non-pressure chronic ulcer of skin of other sites with unspecified severity
CPT/HCPCS: 91018

== ENCOUNTER → 2020-11-02 | Outpatient (CLI) | payer OTHER | LOC: HYPER 08:26 | PROVIDERS: ATTEND Emergency Medicine | DX: E11.621 Type 2 diabetes mellitus with foot ulcer (principal); L97.522 Non-pressure chronic ulcer of other part of left foot with fat layer exposed; L97.512 Non-pressure chronic ulcer of other part of right foot with fat layer exposed; L89.626 Pressure-induced deep tissue damage of left heel; L97.421 Non-pressure chronic ulcer of left heel and midfoot limited to breakdown of skin; E11.69 Type 2 diabetes mellitus with other specified complication; M86.172 Other acute osteomyelitis, left ankle and foot; E11.40 Type 2 diabetes mellitus with diabetic neuropathy, unspecified; R60.9 Edema, unspecified; L84 Corns and callosities; J45.909 Unspecified asthma, uncomplicated; I10 Essential (primary) hypertension; M06.9 Rheumatoid arthritis, unspecified; E66.9 Obesity, unspecified; F41.9 Anxiety disorder, unspecified; F31.9 Bipolar disorder, unspecified; Z68.36 Body mass index [BMI] 36.0-36.9, adult; Z79.4 Long term (current) use of insulin; Z87.891 Personal history of nicotine dependence; Z89.422 Acquired absence of other left toe(s); Z85.89 Personal history of malignant neoplasm of other organs and systems ==

== ENCOUNTER → 2020-11-06 | Outpatient (CLI) | payer OTHER ==
--- NOTE | 2020-11-06 08:34 | NUR ---
IN FOR WEEKLY PICC LINE DRESSING CHANGE AND CENTRAL LINE BLOOD DRAW FOR LEFT FOOT OSTEOMYELITIS. PATIENT STATED WOUND CARE DEBRIDED HIS FOOT WOUND THIS WEEK AND HIS FOOT IS HURTING. TAKING HYDROCODONE AND HELPFUL. AUSTEN BLOOD FROM PICC LINE WITHOUT DIFFICULTY. LABS ORDERED AND BLOOD SENT TO LAB. CHANGED PICC DRESSING. SITE WNL. 1 BLISTER NOTED TO EDGE OF DRESSING AND COVERED WITH GAUZE. TO RETURN NEXT THURSDAY FOR THE SAME. DISMISSED IN STABLE CONDITION.
[2020-11-06 08:55] LABS: HEMATOCRIT 38.5 % (42.0-52.0); HEMOGLOBIN 12.9 gm/dL (14.0-18.0); MCH 31.8 pg (26.0-34.0); MCHC 33.6 g/dL (28.0-37.0); MCV 94.6 fL (80.0-100.0); RBC 4.06 mil/uL (4.50-6.00); RDW 13.5 % (10.5-14.5); WBC 12.7 thou/uL (4.0-11.0)
[2020-11-06 09:03] LABS: CALCIUM 9.2 mg/dL (8.5-10.1); POTASSIUM 3.5 mmol/L (3.5-5.1); TOTAL BILIRUBIN 0.9 mg/dL (0.2-1.0); TOTAL PROTEIN 6.9 g/dL (6.4-8.2)
== END ==
LOC: OPONC 07:06
PROVIDERS: ATTEND Specialist
DX: M86.172 Other acute osteomyelitis, left ankle and foot (principal)

== ENCOUNTER → 2020-11-08 | Outpatient (CLI) | payer OTHER | LOC: HYPER 09:02 | PROVIDERS: ATTEND Emergency Medicine | DX: E11.621 Type 2 diabetes mellitus with foot ulcer (principal); L97.522 Non-pressure chronic ulcer of other part of left foot with fat layer exposed; L97.512 Non-pressure chronic ulcer of other part of right foot with fat layer exposed; L89.626 Pressure-induced deep tissue damage of left heel; L97.421 Non-pressure chronic ulcer of left heel and midfoot limited to breakdown of skin; L84 Corns and callosities; E11.69 Type 2 diabetes mellitus with other specified complication; M86.172 Other acute osteomyelitis, left ankle and foot; E11.40 Type 2 diabetes mellitus with diabetic neuropathy, unspecified; R60.9 Edema, unspecified; J45.909 Unspecified asthma, uncomplicated; I10 Essential (primary) hypertension; M06.9 Rheumatoid arthritis, unspecified; E66.9 Obesity, unspecified; F41.9 Anxiety disorder, unspecified; F31.9 Bipolar disorder, unspecified; Z68.36 Body mass index [BMI] 36.0-36.9, adult; Z79.4 Long term (current) use of insulin; Z87.891 Personal history of nicotine dependence; Z89.422 Acquired absence of other left toe(s); Z85.89 Personal history of malignant neoplasm of other organs and systems ==

== ENCOUNTER → 2020-11-13 | Outpatient (CLI) | payer OTHER ==
[2020-11-13 08:35] VITALS: BP 95/57
[2020-11-13 09:03] LABS: HEMATOCRIT 37.9 % (42.0-52.0); HEMOGLOBIN 12.9 gm/dL (14.0-18.0); MCH 31.5 pg (26.0-34.0); MCHC 33.9 g/dL (28.0-37.0); MCV 92.9 fL (80.0-100.0); RBC 4.08 mil/uL (4.50-6.00); RDW 13.1 % (10.5-14.5); WBC 6.2 thou/uL (4.0-11.0)
--- NOTE | 2020-11-13 09:17 | NUR ---
IN FOR WEEKLY BLOOD DRAW FROM PICC LINE AND PICC DRESSING CHANGE. AUSTEN BLOOD WITHOUT DIFFICULTY. PICC SITE WITHOUT REDNESS, DRAINAGE. BLISTER FROM LAST WEEK HEALED. CHANGED PICC DRESSING PER PROTOCOL. PATIENT STATED TOLERATING THE MEROPENEM WELL WITH NO DIARRHEA, NAUSEA, FEVER, CHILLS AND PAIN. TO RETURN NEXT THURSDAY FOR THE SAME. DISMISSED IN STABLE CONDITION.
[2020-11-13 09:19] LABS: ALBUMIN 2.8 g/dL (3.4-5.0); CALCIUM 9.3 mg/dL (8.5-10.1); CREATININE 1.3 mg/dL (0.7-1.3); TOTAL BILIRUBIN 0.9 mg/dL (0.2-1.0); TOTAL PROTEIN 6.9 g/dL (6.4-8.2)
== END ==
LOC: OPONC 08:27
PROVIDERS: ATTEND Specialist
DX: M86.172 Other acute osteomyelitis, left ankle and foot (principal)

== ENCOUNTER → 2020-11-20 | Outpatient (CLI) | payer OTHER ==
[2020-11-20 08:55] VITALS: BP 104/53
--- NOTE | 2020-11-20 08:56 | NUR ---
IN FOR WEEKLY PICC LINE LAB DRAW AND PICC LINE DRESSING CHANGE FOR LEFT FOOT OSTEOMYELITIS. AUSTEN LAB FROM PICC LINE WITHOUT DIFFICULTY. PICC DRESSING CHANGED. SITE WNL. TO RETURN NEXT THURSDAY FOR THE SAME. DISMISSED IN GOOD CONDITION. SCHEDULED FOR MRI OF LEFT FOOT TODAY.
[2020-11-20 08:58] LABS: HEMATOCRIT 35.9 % (42.0-52.0); HEMOGLOBIN 12.1 gm/dL (14.0-18.0); MCH 31.6 pg (26.0-34.0); MCHC 33.9 g/dL (28.0-37.0); MCV 93.4 fL (80.0-100.0); RBC 3.84 mil/uL (4.50-6.00); RDW 13.5 % (10.5-14.5); WBC 4.4 thou/uL (4.0-11.0)
[2020-11-20 09:16] LABS: ALBUMIN 2.9 g/dL (3.4-5.0); CALCIUM 9.3 mg/dL (8.5-10.1); POTASSIUM 3.7 mmol/L (3.5-5.1); TOTAL BILIRUBIN 0.6 mg/dL (0.2-1.0); TOTAL PROTEIN 6.8 g/dL (6.4-8.2)
== END ==
LOC: MRI 07:58 → OPONC 12:37
PROVIDERS: ATTEND Specialist
DX: S92.342D Displaced fracture of fourth metatarsal bone, left foot, subsequent encounter for fracture with routine healing (principal); S92.352D Displaced fracture of fifth metatarsal bone, left foot, subsequent encounter for fracture with routine healing; M86.172 Other acute osteomyelitis, left ankle and foot; X58.XXXD Exposure to other specified factors, subsequent encounter

== ENCOUNTER → 2020-11-23 | Outpatient (CLI) | payer OTHER | LOC: HYPER 08:08 | PROVIDERS: ATTEND Emergency Medicine Emergency Medical Services | DX: E11.621 Type 2 diabetes mellitus with foot ulcer (principal); L97.522 Non-pressure chronic ulcer of other part of left foot with fat layer exposed; L97.512 Non-pressure chronic ulcer of other part of right foot with fat layer exposed; L89.626 Pressure-induced deep tissue damage of left heel; L97.421 Non-pressure chronic ulcer of left heel and midfoot limited to breakdown of skin; L84 Corns and callosities; E11.69 Type 2 diabetes mellitus with other specified complication; M86.172 Other acute osteomyelitis, left ankle and foot; E11.40 Type 2 diabetes mellitus with diabetic neuropathy, unspecified; R60.9 Edema, unspecified; J45.909 Unspecified asthma, uncomplicated; M06.9 Rheumatoid arthritis, unspecified; E66.9 Obesity, unspecified; F41.9 Anxiety disorder, unspecified; F31.9 Bipolar disorder, unspecified; Z68.36 Body mass index [BMI] 36.0-36.9, adult; Z79.4 Long term (current) use of insulin; Z87.891 Personal history of nicotine dependence; Z89.422 Acquired absence of other left toe(s); Z85.89 Personal history of malignant neoplasm of other organs and systems ==

== ENCOUNTER → 2020-12-05 | Outpatient (CLI) | payer OTHER | LOC: HYPER 08:00 | PROVIDERS: ATTEND Emergency Medicine | DX: E11.621 Type 2 diabetes mellitus with foot ulcer (principal); L89.894 Pressure ulcer of other site, stage 4; L97.522 Non-pressure chronic ulcer of other part of left foot with fat layer exposed; L97.512 Non-pressure chronic ulcer of other part of right foot with fat layer exposed; L97.421 Non-pressure chronic ulcer of left heel and midfoot limited to breakdown of skin; L84 Corns and callosities; E11.69 Type 2 diabetes mellitus with other specified complication; M86.172 Other acute osteomyelitis, left ankle and foot; E11.40 Type 2 diabetes mellitus with diabetic neuropathy, unspecified; R60.9 Edema, unspecified; J45.909 Unspecified asthma, uncomplicated; M06.9 Rheumatoid arthritis, unspecified; E66.9 Obesity, unspecified; F41.9 Anxiety disorder, unspecified; F31.9 Bipolar disorder, unspecified; Z68.36 Body mass index [BMI] 36.0-36.9, adult; Z79.4 Long term (current) use of insulin; Z87.891 Personal history of nicotine dependence; Z89.422 Acquired absence of other left toe(s); Z85.89 Personal history of malignant neoplasm of other organs and systems ==

== ENCOUNTER → 2020-12-21 | Outpatient (CLI) | payer OTHER | LOC: HYPER 08:06 | PROVIDERS: ATTEND Emergency Medicine Emergency Medical Services | DX: E11.621 Type 2 diabetes mellitus with foot ulcer (principal); L97.522 Non-pressure chronic ulcer of other part of left foot with fat layer exposed; L97.512 Non-pressure chronic ulcer of other part of right foot with fat layer exposed; S90.822D Blister (nonthermal), left foot, subsequent encounter; S90.821D Blister (nonthermal), right foot, subsequent encounter; E11.42 Type 2 diabetes mellitus with diabetic polyneuropathy; E11.69 Type 2 diabetes mellitus with other specified complication; M86.172 Other acute osteomyelitis, left ankle and foot; L84 Corns and callosities; R60.9 Edema, unspecified; M19.90 Unspecified osteoarthritis, unspecified site; J45.909 Unspecified asthma, uncomplicated; I10 Essential (primary) hypertension; M06.9 Rheumatoid arthritis, unspecified; E66.9 Obesity, unspecified; F41.9 Anxiety disorder, unspecified; F31.9 Bipolar disorder, unspecified; Z68.36 Body mass index [BMI] 36.0-36.9, adult; Z87.891 Personal history of nicotine dependence; Z79.4 Long term (current) use of insulin; Z89.422 Acquired absence of other left toe(s); Z79.899 Other long term (current) drug therapy; X58.XXXD Exposure to other specified factors, subsequent encounter ==

== ENCOUNTER → 2021-03-01 | Outpatient (CLI) | payer OTHER | LOC: HYPER 07:42 | PROVIDERS: ATTEND Emergency Medicine | DX: E11.621 Type 2 diabetes mellitus with foot ulcer (principal); L97.512 Non-pressure chronic ulcer of other part of right foot with fat layer exposed; T87.89 Other complications of amputation stump; E11.69 Type 2 diabetes mellitus with other specified complication; M86.172 Other acute osteomyelitis, left ankle and foot; E11.40 Type 2 diabetes mellitus with diabetic neuropathy, unspecified; L84 Corns and callosities; R60.9 Edema, unspecified; E66.9 Obesity, unspecified; M19.90 Unspecified osteoarthritis, unspecified site; J45.909 Unspecified asthma, uncomplicated; M06.9 Rheumatoid arthritis, unspecified; F31.9 Bipolar disorder, unspecified; F41.9 Anxiety disorder, unspecified; Z68.36 Body mass index [BMI] 36.0-36.9, adult; Z79.4 Long term (current) use of insulin; Z85.89 Personal history of malignant neoplasm of other organs and systems; Z87.891 Personal history of nicotine dependence; Z79.899 Other long term (current) drug therapy; Z89.422 Acquired absence of other left toe(s); Y83.5 Amputation of limb(s) as the cause of abnormal reaction of the patient, or of later complication, without mention of misadventure at the time of the procedure ==

== ENCOUNTER → 2021-03-08 | Outpatient (CLI) | payer OTHER | LOC: HYPER 07:40 | PROVIDERS: ATTEND Emergency Medicine Emergency Medical Services | DX: T87.89 Other complications of amputation stump (principal); E11.621 Type 2 diabetes mellitus with foot ulcer; L97.512 Non-pressure chronic ulcer of other part of right foot with fat layer exposed; E11.40 Type 2 diabetes mellitus with diabetic neuropathy, unspecified; E11.69 Type 2 diabetes mellitus with other specified complication; M86.172 Other acute osteomyelitis, left ankle and foot; L84 Corns and callosities; R60.9 Edema, unspecified; J45.909 Unspecified asthma, uncomplicated; I10 Essential (primary) hypertension; M06.9 Rheumatoid arthritis, unspecified; E66.9 Obesity, unspecified; Z68.36 Body mass index [BMI] 36.0-36.9, adult; F41.9 Anxiety disorder, unspecified; F31.9 Bipolar disorder, unspecified; Z79.4 Long term (current) use of insulin; Z87.891 Personal history of nicotine dependence; Z79.899 Other long term (current) drug therapy; Y83.5 Amputation of limb(s) as the cause of abnormal reaction of the patient, or of later complication, without mention of misadventure at the time of the procedure ==

== ENCOUNTER → 2021-03-22 | Outpatient (CLI) | payer OTHER | LOC: HYPER 07:36 | PROVIDERS: ATTEND Emergency Medicine | DX: T87.89 Other complications of amputation stump (principal); E11.621 Type 2 diabetes mellitus with foot ulcer; L97.512 Non-pressure chronic ulcer of other part of right foot with fat layer exposed; E11.69 Type 2 diabetes mellitus with other specified complication; M86.172 Other acute osteomyelitis, left ankle and foot; E11.40 Type 2 diabetes mellitus with diabetic neuropathy, unspecified; L84 Corns and callosities; R60.9 Edema, unspecified; R21 Rash and other nonspecific skin eruption; J45.909 Unspecified asthma, uncomplicated; I10 Essential (primary) hypertension; M06.9 Rheumatoid arthritis, unspecified; E66.9 Obesity, unspecified; F41.9 Anxiety disorder, unspecified; Z68.36 Body mass index [BMI] 36.0-36.9, adult; F31.9 Bipolar disorder, unspecified; Z85.89 Personal history of malignant neoplasm of other organs and systems; Z87.891 Personal history of nicotine dependence; Z79.4 Long term (current) use of insulin; Z79.899 Other long term (current) drug therapy; Y83.5 Amputation of limb(s) as the cause of abnormal reaction of the patient, or of later complication, without mention of misadventure at the time of the procedure ==

== ENCOUNTER → 2021-04-12 | Outpatient (CLI) | payer OTHER | LOC: HYPER 04-11 09:45 | PROVIDERS: ATTEND Emergency Medicine Emergency Medical Services | DX: E11.621 Type 2 diabetes mellitus with foot ulcer (principal); L97.512 Non-pressure chronic ulcer of other part of right foot with fat layer exposed; E11.69 Type 2 diabetes mellitus with other specified complication; L84 Corns and callosities; E11.40 Type 2 diabetes mellitus with diabetic neuropathy, unspecified; R60.9 Edema, unspecified; R21 Rash and other nonspecific skin eruption; J45.909 Unspecified asthma, uncomplicated; M06.9 Rheumatoid arthritis, unspecified; E66.9 Obesity, unspecified; F41.9 Anxiety disorder, unspecified; F31.9 Bipolar disorder, unspecified; Z68.36 Body mass index [BMI] 36.0-36.9, adult; Z85.89 Personal history of malignant neoplasm of other organs and systems; Z87.891 Personal history of nicotine dependence; Z79.4 Long term (current) use of insulin; Z89.512 Acquired absence of left leg below knee; Z79.899 Other long term (current) drug therapy ==

== ENCOUNTER → 2021-04-26 | Outpatient (CLI) | payer OTHER | LOC: HYPER 07:30 | PROVIDERS: ATTEND Emergency Medicine Emergency Medical Services | DX: E11.621 Type 2 diabetes mellitus with foot ulcer (principal); L97.512 Non-pressure chronic ulcer of other part of right foot with fat layer exposed; S80.821A Blister (nonthermal), right lower leg, initial encounter; E11.69 Type 2 diabetes mellitus with other specified complication; M86.172 Other acute osteomyelitis, left ankle and foot; L84 Corns and callosities; R60.9 Edema, unspecified; M19.90 Unspecified osteoarthritis, unspecified site; J45.909 Unspecified asthma, uncomplicated; I10 Essential (primary) hypertension; E11.40 Type 2 diabetes mellitus with diabetic neuropathy, unspecified; M06.9 Rheumatoid arthritis, unspecified; E66.9 Obesity, unspecified; F41.9 Anxiety disorder, unspecified; F31.9 Bipolar disorder, unspecified; Z68.36 Body mass index [BMI] 36.0-36.9, adult; Z85.89 Personal history of malignant neoplasm of other organs and systems; Z79.4 Long term (current) use of insulin; Z87.891 Personal history of nicotine dependence; Z89.512 Acquired absence of left leg below knee; Z79.899 Other long term (current) drug therapy; X58.XXXA Exposure to other specified factors, initial encounter; Y93.89 Activity, other specified; Y92.89 Other specified places as the place of occurrence of the external cause; Y99.8 Other external cause status ==

== ENCOUNTER → 2021-06-28 | Outpatient (CLI) | payer OTHER | LOC: EDBD 07:57 → HYPER 07:57 | PROVIDERS: ATTEND Emergency Medicine | DX: T81.89XD Other complications of procedures, not elsewhere classified, subsequent encounter (principal); E11.621 Type 2 diabetes mellitus with foot ulcer; L97.416 Non-pressure chronic ulcer of right heel and midfoot with bone involvement without evidence of necrosis; S80.821D Blister (nonthermal), right lower leg, subsequent encounter; E11.69 Type 2 diabetes mellitus with other specified complication; M86.172 Other acute osteomyelitis, left ankle and foot; L84 Corns and callosities; R60.9 Edema, unspecified; M19.90 Unspecified osteoarthritis, unspecified site; J45.909 Unspecified asthma, uncomplicated; I10 Essential (primary) hypertension; E11.40 Type 2 diabetes mellitus with diabetic neuropathy, unspecified; M06.9 Rheumatoid arthritis, unspecified; E66.9 Obesity, unspecified; F41.9 Anxiety disorder, unspecified; F31.9 Bipolar disorder, unspecified; Z68.36 Body mass index [BMI] 36.0-36.9, adult; Z85.89 Personal history of malignant neoplasm of other organs and systems; Z79.4 Long term (current) use of insulin; Z87.891 Personal history of nicotine dependence; Z89.512 Acquired absence of left leg below knee; X58.XXXD Exposure to other specified factors, subsequent encounter; Y83.8 Other surgical procedures as the cause of abnormal reaction of the patient, or of later complication, without mention of misadventure at the time of the procedure ==

== ENCOUNTER → 2021-07-12 | Outpatient (CLI) | payer BC ==
[~2021-07-12] MED LIST changes: +HUMALOG100 UNIT/1 SUBQ
== END ==
LOC: HYPER 07:39
PROVIDERS: ATTEND Emergency Medicine Emergency Medical Services
DX: T81.89XD Other complications of procedures, not elsewhere classified, subsequent encounter (principal); E11.621 Type 2 diabetes mellitus with foot ulcer; L97.416 Non-pressure chronic ulcer of right heel and midfoot with bone involvement without evidence of necrosis; L97.512 Non-pressure chronic ulcer of other part of right foot with fat layer exposed; S80.821D Blister (nonthermal), right lower leg, subsequent encounter; E11.69 Type 2 diabetes mellitus with other specified complication; M86.172 Other acute osteomyelitis, left ankle and foot; L84 Corns and callosities; R60.9 Edema, unspecified; M19.90 Unspecified osteoarthritis, unspecified site; J45.909 Unspecified asthma, uncomplicated; I10 Essential (primary) hypertension; E11.40 Type 2 diabetes mellitus with diabetic neuropathy, unspecified; M06.9 Rheumatoid arthritis, unspecified; F41.9 Anxiety disorder, unspecified; F31.9 Bipolar disorder, unspecified; Z68.36 Body mass index [BMI] 36.0-36.9, adult; Z85.89 Personal history of malignant neoplasm of other organs and systems; Z79.4 Long term (current) use of insulin; Z87.891 Personal history of nicotine dependence; Z89.512 Acquired absence of left leg below knee; X58.XXXD Exposure to other specified factors, subsequent encounter; Y83.8 Other surgical procedures as the cause of abnormal reaction of the patient, or of later complication, without mention of misadventure at the time of the procedure

== ENCOUNTER 2021-07-27 10:54 | Inpatient (IN) | payer BC ==
[~2021-07-27] VITALS: Ht 182.9 cm; Wt 109.3 kg
[~2021-07-27 10:54] MED LIST changes: -HUMALOG100 UNIT/1 SUBQ
[2021-07-27 11:08] VITALS: BP 125/70
[2021-07-27 12:12] LABS: ABSOLUTE NEUTROPHILS 4.7 thou/uL (1.4-8.2); BASOPHILS 0.3 % (0.0-2.0); EOSINOPHILS 1.4 % (0.0-3.0); HEMATOCRIT 32.6 % (42.0-52.0); HEMOGLOBIN 10.7 gm/dL (14.0-18.0); LYMPHOCYTES 16.3 % (24.0-44.0); MCH 28.6 pg (26.0-34.0); MCV 86.8 fL (80.0-100.0); MONOCYTES 12.9 % (1.0-8.0); PLATELET COUNT 172 thou/uL (150-400); POLYS 69.1 % (36.0-66.0); RBC 3.76 mil/uL (4.50-6.00); RDW 16.7 % (10.5-14.5); WBC 6.9 thou/uL (4.0-11.0)
[2021-07-27 12:21] LABS: CALCIUM 8.6 mg/dL (8.5-10.1); CREATININE 0.8 mg/dL (0.7-1.3); POTASSIUM 3.3 mmol/L (3.5-5.1)
[2021-07-27 12:26] LABS: ALBUMIN 2.3 g/dL (3.4-5.0); DIRECT BILIRUBIN 0.6 mg/dL (<0.1-0.2); TOTAL BILIRUBIN 1.3 mg/dL (0.2-1.0); TOTAL PROTEIN 6.7 g/dL (6.4-8.2)
[2021-07-27 19:05] VITALS: BP 129/61
[2021-07-27 19:59] VITALS: BP 123/65
[2021-07-27 20:08] VITALS: BP 125/71
[2021-07-28] VITALS (7 sets, daily range): BP systolic 85–139; BP diastolic 43–70
--- NOTE | 2021-07-28 08:19 | NUR ---
new admission for left foot ulcers. pictures taken and placed in the chart. patient aox4 make needs known. left foot ulcer had minimum drainage with strong odor, cleansed wound and lota per patient request. +3 edema on rle, encouraged patient to elevate rle. dr. youssef saw patient no new orders. patient had a fall around 0138. patient was confused and forgot he had lost his left leg. patient bed alarm went off and staff on duty went to check on patient and patient was on the floor on sitting position. patient was alert but a little confused during assessment. patient denied hitting his head. per patient,patient is not on blood thinner at home. patient landed on left knee, inpatient coder notified new order for left knee xr. notified about the fall. post fall intervention done. patient in bed asleep at this time breathing regular and unlaboured. will continue to monitor patient for any changes.
--- NOTE | 2021-07-29 03:29 | NUR ---
Assumed pt care tat 1899. A/OX4,VSS. C/o pain to right foot and requested for Oxycodone as the pain wasn't reliefed by [place];Sushma CRUZ notified,n.o for Fentanyl 50mcg given X1 with relief reported. Dressing in place on right foot without further blleding noted on toe area. Fall precautions in place,calls approp for help.
[2021-07-29 05:01] LABS: POTASSIUM 3.3 mmol/L (3.5-5.1)
[2021-07-29 05:19] LABS: HEMATOCRIT 28.3 % (42.0-52.0); HEMOGLOBIN 9.5 gm/dL (14.0-18.0)
[2021-07-29 07:32] VITALS: BP 99/58
--- NOTE | 2021-07-29 14:51 | NUR ---
PT ADMITTED RELATED TO RIGHT FOOT ULCER. CM REVIEWED CHART AND SPOKE WITH CARE TEAM. CM MET WITH PT AT BEDSIDE THIS DAY. PT APPEARED TO BE A&O X4. CM ROLE INTRODUCED. PT INDICATED THAT HE RESIDES IN A HOUSE WITH HIS WITH RAMP IN FRONT TO ENTER. PT INDICATED HE HAS A WC, NEW PROSTHESIS, SHOWER CHAIR FOR HOME USE. PT INDICATED HE HAD RECENTLY GOTTEN HIS PROSTHESIS AND THAT HE WAS DOING OP PT AT A FACILITY IN [facility]. PT INDICATED HE HAS A BCBS WITH WORDS AFTER IT PRODUCT. PT CONFIRMED THAT HE HAD [facility] AND [facility] IN THE PAST AND THAT HE WOULD USE THOSE PROVIDERS FOR SERVICES AGAIN IF NEEDED. PT HAD 5TH RAY AMP AND I&D AND IT WAS INDICATED THAT PT WILL NEED REPEAT I&D ON THURSDAY. CM FOLLOWING REGARDING DC PLANNING.
[2021-07-29 15:18] VITALS: BP 109/68
--- NOTE | 2021-07-29 15:20 | NUR ---
PATIENT NON-AMBULATORY POST SURGERY. PLAN FOR DEBRIDEMENT IN A FEW DAYS. ORIGINAL SURGICAL DRESSING WITH OSCAR WRAP IN PLACE. PATIENT VOICES PAIN/DISCOMFORT TO SURGICAL SITE ON RIGHT FOOT, TREATED WITH PRN PAIN MEDICATION PER NOV. IV ABX GIVEN. PATIENT DENIES ANY NEEDS OR CONCERNS AT THIS TIME.
--- NOTE | 2021-07-29 19:22 | NUR ---
SEEN BY WOUND DOCTOR THIS AFTERNOON. PATIENT ON BEDREST. PLAN FOR SURGERY IN THE NEXT FEW DAYS. PATIENT RESTING IN BED. PRN MEDICATION GIVEN PER NOV. DENIES ANY NEEDS OR CONCERNS AT THIS TIME.
[2021-07-29 20:43] VITALS: BP 118/68
--- NOTE | 2021-07-30 04:29 | NUR ---
ASSUMED PT CARE THIS PM. PT IS ALERT AND ORIENTED X4. PT HAS DRSG O THE R FOOT WHICH IS C/D/I WITH NO SIGN OF DRAINAGE. SENSATION THE R FOOT IS INTACT. PT REFUSED INSULIN SHOT EVEN AFTER BEING INFORMED OF BG LEVEL. PT C/O PAIN WHICH WAS MANAGED BY PRN MEDS. PT DID NOT VERBALIZE ANY CONCERNS. MEDS WERE GIVEN PER EMAR ORDERS. PT USES URINAL. FALL PRECAUTION IN PLACE. WILL CONTINUE TO MONITOR.
[2021-07-30 09:30] VITALS: BP 121/64
--- NOTE | 2021-07-30 10:03 | HC ---
[facility] [place] [address] CONSULTATION Name: RUEL LEE Room #: 462-P [facility] IN M.R.#: [id number] Admission: 07/27/21 Attend Phys: Michelle Portillo Discharge: Date of : 61 Report #: [id number] THIS REPORT FOR: cc: Diego Calvo MD, Steven A. MD Geha, Daniel J. MD ~ DATE OF SERVICE: 07/28/2021 INFECTIOUS DISEASE CONSULTATION REASON FOR CONSULTATION: I was asked to evaluate concerning diabetic foot infection. HISTORY OF PRESENT ILLNESS: The patient is a 55-year-old with diabetes and peripheral neuropathy. In August of last year, he underwent left below-knee amputation due to osteomyelitis of his foot. Subsequently, over the last several months, he has had nonhealing wound over the lateral aspect of his left distal foot and fifth toe region. This did not heal despite oral antibiotic therapy. He then developed a wound to the dorsum of his foot and he was hospitalized for further evaluation. Taken to surgery today for debridement with a partial fifth ray resection with wound debridement along the dorsum of his distal foot and tracking down plantar region over the cuboid. This was left open. Cultures from this are pending. Previous cultures had revealed MRSA and Enterobacter from wound culture taken earlier this month. Followup cultures drawn yesterday are so far showing Enterococcus faecalis and Proteus species. The patient denies any fever, chills, or sweats. His pain is under reasonable control. Unclear as to his diabetic management. No cardiopulmonary complaints, GI or complaints. PAST MEDICAL HISTORY, FAMILY HISTORY, AND SOCIAL HISTORY: Unchanged from his history and physical, which was reviewed along with the previous consultation in 2019. ALLERGIES: HE IS ALLERGIC TO PENICILLIN WITH HIVES, although he has tolerated cephalosporins and meropenem. ALSO ALLERGY TO SULFA. MEDICATIONS: As noted on his MAR including vancomycin and cefepime. PHYSICAL EXAMINATION: GENERAL: He is afebrile and hemodynamically stable. He is alert, cooperative, and pleasant. No acute distress. Right foot was dressed and dry. He was able to move the foot and toes. HEENT: Eyes without scleral icterus. Mouth without mucositis. NECK: Supple. LUNGS: Clear. [address] [address] CONSULTATION Name: RUEL LEE Room #: 462-P AD[facility] IN M.R.#: [id number] Admission: 07/27/21 Attend Phys: Michelle Portillo Discharge: Date of : 61 Report #: [id number] HEART: Regular, without murmur. ABDOMEN: Soft and nontender with no hepatosplenomegaly or mass. EXTREMITIES: Left BKA stump was well healed. LABORATORY DATA: Reviewed. MICROBIOLOGY: Reviewed. X-rays of his foot reviewed. Ultrasound of his right lower extremity arterial Doppler reviewed. IMPRESSION: A 55-year-old with: 1. Diabetes, diabetic foot ulcer over the right fifth metatarsal with associated osteomyelitis, now status post partial ray amputation and soft tissue debridement of extensive skin and soft tissue infection throughout the right foot. He has polymicrobial growth. 2. Diabetes. 3. Peripheral neuropathy. 4. Attention deficit disorder. 5. Bipolar disorder. RECOMMENDATION: We will continue antibiotic coverage with vancomycin and meropenem as the patient did grow Enterobacter, Proteus, as well as MRSA and Enterococcus faecalis from his wound. We will await final culture results. The patient will require further surgical intervention as outlined by Podiatry. We will determine length of his antibiotic course following further surgical debridement. <ELECTRONICALLY SIGNED> By: Erasmo Romero MD 07/30/21 1003 [id number] Erasmo Romero MD /nt
[2021-07-30 12:24] VITALS: BP 118/69
--- NOTE | 2021-07-30 14:26 | NUR ---
Nutrition: pt seen due to right diabetic foot ulcer, S/P 5th ray amputation/I&D. Plan for repeat I&D 07/31. Pt voices weight loss from > 300# a year ago due to changed eating habits. Eating ~50% of meals, high protein. Drinks protein drinks BID at home, will order ensure max BID. BG 164-191. Low nutrition risk.
--- NOTE | 2021-07-30 15:38 | NUR ---
PT ALERT AND ORIENTED TIMES FOUR. VSS. PT C/O PAIN PRN PAIN MEDICATIONS WITH SOME RELEIF. PT ALSO C/O CONSTIPATION BUT REFUSED MIRALAX WHEN OFFERED. DRESSING TO FOOT COMPLEATED PER WOUND CARE TEAM. PT TOLERATES MEDS AND MEALS. NPO AFTER MIDNIGHT FOR SURGEY TOMORROW. WILL CONTINUE TO MONITOR.
[2021-07-30 19:46] VITALS: BP 138/82
--- NOTE | 2021-07-31 05:52 | NUR ---
Pt. rested quietly during the night when checked on during frequent rounds. He was given po pain meds for c/o right foot pain (see emar) with some re- lief noted. Pt. does not like to be turned, but was repositined this am. Dahlia care given and Z-guard applied to buttocks. Dressing to his right foot is dry and intact. Bed alarm is on.
[2021-07-31 08:00] VITALS: BP 113/64
--- NOTE | 2021-07-31 10:37 | HC ---
[facility] [place] [address] CONSULTATION Name: RUEL LEE Room #: 462-P [facility] IN M.R.#: [id number] Admission: 07/27/21 Attend Phys: Michelle Portillo Discharge: Date of : 61 Report #: [id number] THIS REPORT FOR: cc: Diego Calvo MD, Steven A. MD Althoff,Booker Leos MD ~ DATE OF SERVICE: 07/27/2021 CHIEF COMPLAINT: Diabetic foot infection. HISTORY OF PRESENT ILLNESS: This is a 55-year-old male patient with a history of diabetes mellitus, previous left below-knee amputation because of left foot osteomyelitis. He has had a chronic ulcer involving his right foot. He was seen in the clinic approximately 2 weeks ago and was referred to Dr. Romero. MRI and x-ray and lab were ordered; however, those were not successfully completed. He called me earlier in the morning stating that there was increasing swelling, redness and odor. I have advised him to go to the Emergency Department. I have seen him at the Emergency Department today. The patient states he feels reasonably well, but is worried about the odor and drainage as is his . PAST MEDICAL HISTORY: Positive for history of fibromyalgia, ADD, history of hypertension, left below-knee amputation, type 2 diabetes mellitus, bipolar disorder, previous osteomyelitis. MEDICATIONS: Include Geodon, Ativan, Adderall, Levemir, Ostera, Zestril, Glumetza, Topamax and Merrem. ALLERGIES: PENICILLIN and SULFA. 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 He does not have alcohol or tobacco use at this time. FAMILY HISTORY: Noncontributory. REVIEW OF SYSTEMS: CONSTITUTIONAL: The patient denies fever, chills or weight loss. NEUROLOGICAL: The patient denies focal weakness, ____ tingling. EYES: The patient denies any visual changes, redness, drainage. ENT: The patient denies earache, nasal drainage, sore throat. CARDIOVASCULAR: No chest pain, palpitation, diaphoresis. PULMONARY: No cough, shortness of breath. GASTROINTESTINAL: Denies nausea or abdominal pain. ORTHOPEDIC: The patient does have some redness and drainage and odor and ulceration to the right foot. Others systems in a 14-point review of systems are negative. [address] [address] CONSULTATION Name: RUEL LEE Room #: 462-P [facility] IN .R.#: [id number] Admission: 07/27/21 Attend Phys: Michelle Portillo Discharge: Date of : 61 Report #: [id number] PHYSICAL EXAMINATION: VITAL SIGNS: Include temperature 36.8, pulse 80, respiration 16, blood pressure 113/63. GENERAL: This is a somewhat chronically ill-appearing male patient appears in no distress. HEENT: Head normocephalic. Nose and throat are clear. NECK: Supple. ____ ABDOMEN: Soft. Bowel sounds present. EXTREMITIES: Lower extremities demonstrate 2-3+ edema of the right lower extremity and foot, left below-knee amputation site is intact. The right foot demonstrates a plantar ulcer at the fifth MTP with extension to the dorsal surface. There is odor and drainage noted at this time. NEUROLOGIC: The patient is alert, oriented and appropriate. LABORATORY AND DIAGNOSTIC STUDIES: Include sodium 140, potassium 3.2, chloride 104, CO2 of 24, BUN 11, creatinine 0.8, glucose 158. Albumin is 2.3. White blood cell count 6.9 with a hemoglobin of 10.7. X-ray demonstrates osteomyelitis of the fifth metatarsal and fifth proximal phalanx with gas in the tissue. CLINICAL IMPRESSION: 1. Diabetic foot ulcer with wound infection and possible abscess. 2. Osteomyelitis, right fifth metatarsophalangeal. 3. Type 2 diabetes mellitus with peripheral neuropathy. 4. Prior left below-knee amputation. RECOMMENDATIONS: At this point in time, the patient will be started on intravenous antibiotic therapy. We will consult Infectious Disease. He is familiar with Dr. Gusman and I have consulted Dr. Gusman to see him for probable surgical intervention. He will need intravenous antibiotic therapy. I have contacted Dr. Romero as well for help with antibiotic management. The patient will need aggressive nutritional support as well as local wound care following surgery. I appreciate being asked to see him in consultation. <ELECTRONICALLY SIGNED> By: Booker Jay MD 07/31/21 1037 [id number] [id number] Booker Jay MD /nt
--- NOTE | 2021-07-31 15:35 | NUR ---
PT GOING FOR REPEAT I&D THIS DAY. HAVING REQUESTED AND RECEIVED PT'S PERMISSION NINA FAXED REFERRALS TO [facility] AND [facility]. BOTH CAN ACCPET PT FOR SERVICES UPON DC. [facility] INDICATED THAT PT IS COVERED AT 1005 FOR INFUSION SERVICES UPON DC. [facility] IS ABLE TO ACCEPT. NINA MET WITH PT AND SPOUSE AT BEDSIDE PRIOR TO PROCEDURE AND NOTIFIED THEM OF THE ABOVE. JUST AWAITING FINAL ID RECS. CM FOLLOWING REGARDING DC PLANNING.
--- NOTE | 2021-07-31 17:33 | NUR ---
PICC PLACED FOR HOME ABX
--- NOTE | 2021-07-31 18:01 | NUR ---
PT ALERT AND ORIENTED. VSS. PRN PAIN MED GIVEN WITH PARTIAL RELIEF. PT HAD I7D OF THE RIGHT FOOT WITH DELAYED CLOSURE. NO CONCERNS AT THIS TIME.
[2021-07-31 18:03] VITALS: BP 135/69
[2021-07-31 20:03] VITALS: BP 130/70
[2021-08-01 00:56] VITALS: BP 133/75
[2021-08-01 05:34] VITALS: BP 133/61
--- NOTE | 2021-08-01 05:50 | NUR ---
ASSUMED CARE OF PT AT 1900. PT IS ASSESSED TO BE 55M R FOOT ULCER PT. PT SLEPT IN ROOM THROUGHOUT THE NIGHT WITH FEW COMPLAINTS, VSS. PAIN CONTROLLED THROUGHOUT THE NIGHT BY ORAL AND IV PAIN MEDS. WOUNDS ARE DRESSED POST I + D EARLIER TODAY. PT MOVES HIMSELF SIDE TO SIDE IN BED FOR COMFORT. IV ANTIBIOTICS GIVEN THROUGHOUT THE NIGHT. WILL GO HOME IN AM WITH HOME HEALTH TO MANAGE WOUNDS AND DRESSING CARE. RESTING IN BED NOW, WILL CONTINUE TO MONITOR.
[2021-08-01 07:48] VITALS: BP 129/59
[2021-08-01] MEDS ORDERED: HUMALOG100 UNIT/1 SUBQ (10:32)
[2021-08-01 12:30] VITALS: BP 120/61
[2021-08-01 12:40] VITALS: BP 155/68
[2021-08-01 13:44] VITALS: BP 155/68
--- NOTE | 2021-08-01 15:26 | NUR ---
CARE TEAM INDICATED THAT PT IS MEDICALLY STABLE TO DC HOME THIS DAY. HOSPITALIST ORDERD MERREM 500MG DAILY FOR DC. NINA ASKED IF THIS IS WHAT DR. JASON WITH ID ORDERD HE STATED YES. NINA INFORMED PT AND SPOUSE AND FAXED ORDERS TO [facility]. [facility] HAS PT ON SCHEDULE TO BE SEEN TOMORROW. [facility] CALLED AND QUESTION IV ABX ORDER PT HAD BEEN ON THE MERREM Q6 THIS HOSPITILIZATION. CM INDICATED THAT THERE WASN'T A NOTE IN FROM [facility] OF YET. NINA CALLED [facility]S OFFICE AND HAD THEM PAGE HIM TO INQUIRE. [facility] HAD REACHED OUT TO [facility] AND ALREADY GOT THE PREFERRED ORDERS FROM HIM. [facility] ENTERED THEM INTO COMPUTER. PT DIDN'T WANT BEDSIDE TEACH. CM FAXED UPDATED ORDERD AND PICC CONFIRMATION TO [facility]. NO OTHER CM INTERVENTION INDICATED.
--- NOTE | 2021-08-01 15:52 | NUR ---
Assumed pt care this am vs stable. Refused insuling and blood pressure medications and insulin stating he does not take any of those. Wound care and dressing changes along with dc pictures taken by wound care nurse. Pt was very anxious to go home, wanting staff to page ID doctor to put the orders in immediately and he was not staying another night. Lodge Attendant and CM advised, PICC line kept for OP abx tx. POC followed ,pain managed with medications. FAll precautions in place, refused to have a shower today. at the bedside, came to merchandise pickup/receiving associate the pt. DC instructions given to the pt and the . Pt is now dc.
--- NOTE | 2021-08-02 10:07 | PATH ---
[facility] [address] [place] [address] PATHOLOGY RPT PROCEDURE Name: JULIO LEE Room #: 462-P DIS IN M.R.#: [id number] Admission: 07/27/21 Date of : 61 Discharge: 08/01/21 Report #: [id number] Path Case #: [id number] [facility] Accession Number: [id number] . 01 Material submitted: . foot - RIGHT FOOT 5TH PARTIAL RAY RESECTION. Modifiers: right . 01 Clinical history: . RESECTION SEPTIC ULCER . 02 Diagnosis: Foot, right foot fifth partial ray resection: - Skin and subcutaneous tissue with ulceration, marked acute inflammation as well as fibrinoid degeneration. - Acute inflammation extends to underlying bone associated with acute osteomyelitis and osteonecrosis. - Margin showing viable soft tissue and cartilaginous cap. (IUV:jb; 07/31/2021) MBR 07/31/2021 1500 Local . 02 Electronically signed: . Ciara Alcocer MD, Pathologist NPI- [id number] . 01 Gross description: . The specimen is received in formalin, labeled "Julio Lee, right foot fifth partial ray". Received is an AP dated digit measuring 5.0 x 2.7 x 2.5 cm in greatest mentions. The bone margin is not discernible grossly. The surgical margin is inked black. The nail is present displaying a light de la paz and thickened appearance. On the dorsal/medial aspect, there is an ill-defined, irregular in contour and yellow-de la paz to de la paz-brown lesion measuring 2.5 x 1.0 cm, which grossly approaches the inked surgical margin. A full-thickness longitudinal cross-section is submitted proximal to distal aspects, following decalcification. . Also received within the specimen container is an additional segment of rebolledo-de la paz tissue measuring 3.8 x 2.4 x 1.6 cm in greatest dimensions. A jagged bone margin is identified, which is inked black. A full-thickness longitudinal cross-section is submitted in cassette A3, following decalcification. (CAA; 07/30/2021) QAC/QAC 07/30/2021 0906 Local . 02 Pathologist provided ICD-10: L97.519, L98.9, M86.171, M87.9 . [address] [address] PATHOLOGY RPT PROCEDURE Name: JULIO LEE Room #: 462-P DIS IN M.R.#: [id number] Admission: 07/27/21 Date of : 61 Discharge: 08/01/21 Report #: [id number] Path Case #: [id number] CPT . 516049, [id number] Specimen Comment: A courtesy copy of this report has been sent to [phone], [phone] Specimen Comment: [id number], Specimen Comment: Report sent to , DR WATT AND DR BATRES Specimen Comment: A duplicate report has been generated due to demographic updates. Performed at: [address] [facility] [address] [id number] MD Suhail Mott MD Phone: [phone] Performed at: [address] [facility] [address] [id number] MD Ciara Alcocer MD Phone: [phone]
--- NOTE | 2021-08-02 12:34 | O ---
[facility] [place] [address] OPERATIVE REPORT Name: RUEL LEE Room #: 462-P [facility] M.R.#: [id number] Admission: 07/27/21 Attend Phys: Michelle Portillo Discharge: 08/01/21 Date of : 61 Report #: [id number] THIS REPORT FOR: cc: Diego Calvo MD, Steven A. MD Rizzi, Raymond M. DPM ~ PREOPERATIVE DIAGNOSIS: Diabetic foot ulcer, right foot. POSTOPERATIVE DIAGNOSIS: Diabetic foot ulcer, right foot. PROCEDURE: Right foot debridement of subcutaneous and tendon, 7 x 3 cm, excisional. ANESTHESIA: Local with Versed. DESCRIPTION OF PROCEDURE: The patient was transferred to the operating room and placed on the operating room table. The right foot was debrided and evaluated from a previous debridement. It was noted that the dorsal flap was excellent looking in the tunnel and going over the dorsal aspect of the foot medially, looked very clean. The dorsal incision on the lateral foot looked healthy as well. The deep plantar incision had some necrotic tissue and tunneling back to underneath the calcaneus. I did open the incision up further proximally 5 cm, making about 7-8 cm in length and cleaned it out with pituitary to good bleeding tissue. Also took deep tissue for aerobic, anaerobic and fungal. Washed out nicely and put fluffs, Kerlix and Sharad bandage. The patient will go home tomorrow from my perspective. Local wound care will be done by Dr. Jay, Dr. Desouza and Dr. Silverio. It should also be noted that I did close the other parts of the flaps, the dorsal flap and the medial, dorsal and inferior flap. This was done with 2-0 nylon and 0 nylon. <ELECTRONICALLY SIGNED> By: Matt Gusman DPM 08/02/21 [id number] Matt Gusman DPM /nt
== END 2021-08-01 16:00 | disposition home or self-care (01) | DRG 623 ==
LOC: ER 10:54 → EROBS 16:26 → 4W 16:26
PROVIDERS: Podiatrist Foot & Ankle Surgery; Student in an Organized Health Care Education/Training Program; ADMIT Hospitalist; ATTEND Hospitalist
PROC: 0LBV0ZZ Excision of Right Foot Tendon, Open Approach (ICD-10-PCS; principal; 2021-07-27)
PROC: 05HY33Z Insertion of Infusion Device into Upper Vein, Percutaneous Approach (ICD-10-PCS; 2021-07-31)
DX: E11.621 Type 2 diabetes mellitus with foot ulcer (principal); M86.8X7 Other osteomyelitis, ankle and foot; E44.0 Moderate protein-calorie malnutrition; E11.69 Type 2 diabetes mellitus with other specified complication; I10 Essential (primary) hypertension; J45.909 Unspecified asthma, uncomplicated; F31.9 Bipolar disorder, unspecified; E11.51 Type 2 diabetes mellitus with diabetic peripheral angiopathy without gangrene; E11.42 Type 2 diabetes mellitus with diabetic polyneuropathy; F98.8 Other specified behavioral and emotional disorders with onset usually occurring in childhood and adolescence; B96.4 Proteus (mirabilis) (morganii) as the cause of diseases classified elsewhere; R53.81 Other malaise; B96.89 Other specified bacterial agents as the cause of diseases classified elsewhere; E66.01 Morbid (severe) obesity due to excess calories; Z68.32 Body mass index [BMI] 32.0-32.9, adult; Z88.0 Allergy status to penicillin; Z89.512 Acquired absence of left leg below knee; Z88.2 Allergy status to sulfonamides
CPT/HCPCS: 10040; 10045; 27000; 50010; 50101; 50386; 50951; 56525; 56528; 57091; 62110; 62850; 62900; 70005

== ENCOUNTER → 2021-08-16 | Outpatient (CLI) | payer BC ==
[~2021-08-16] MED LIST changes: +HUMALOG100 UNIT/1 SUBQ
== END ==
LOC: HYPER 07:59
PROVIDERS: ATTEND Emergency Medicine Emergency Medical Services
DX: T87.89 Other complications of amputation stump (principal); E11.621 Type 2 diabetes mellitus with foot ulcer; L97.512 Non-pressure chronic ulcer of other part of right foot with fat layer exposed; E11.69 Type 2 diabetes mellitus with other specified complication; M86.172 Other acute osteomyelitis, left ankle and foot; L84 Corns and callosities; E11.40 Type 2 diabetes mellitus with diabetic neuropathy, unspecified; J45.909 Unspecified asthma, uncomplicated; I10 Essential (primary) hypertension; M06.9 Rheumatoid arthritis, unspecified; E66.9 Obesity, unspecified; F41.9 Anxiety disorder, unspecified; F31.9 Bipolar disorder, unspecified; Z68.36 Body mass index [BMI] 36.0-36.9, adult; Z79.4 Long term (current) use of insulin; Z89.512 Acquired absence of left leg below knee; Z85.89 Personal history of malignant neoplasm of other organs and systems; Z87.891 Personal history of nicotine dependence; Y83.5 Amputation of limb(s) as the cause of abnormal reaction of the patient, or of later complication, without mention of misadventure at the time of the procedure

== ENCOUNTER → 2021-08-26 | Outpatient (CLI) | payer BC | LOC: HYPER 08:07 | PROVIDERS: ATTEND Emergency Medicine Emergency Medical Services | DX: T87.89 Other complications of amputation stump (principal); E11.621 Type 2 diabetes mellitus with foot ulcer; L97.512 Non-pressure chronic ulcer of other part of right foot with fat layer exposed; E11.69 Type 2 diabetes mellitus with other specified complication; M86.172 Other acute osteomyelitis, left ankle and foot; E11.40 Type 2 diabetes mellitus with diabetic neuropathy, unspecified; L84 Corns and callosities; R60.9 Edema, unspecified; I89.0 Lymphedema, not elsewhere classified; M19.90 Unspecified osteoarthritis, unspecified site; J45.909 Unspecified asthma, uncomplicated; M06.9 Rheumatoid arthritis, unspecified; E66.9 Obesity, unspecified; F41.9 Anxiety disorder, unspecified; F31.9 Bipolar disorder, unspecified; Z68.36 Body mass index [BMI] 36.0-36.9, adult; Z87.891 Personal history of nicotine dependence; Z79.4 Long term (current) use of insulin; Z79.899 Other long term (current) drug therapy; Z89.512 Acquired absence of left leg below knee; Y83.5 Amputation of limb(s) as the cause of abnormal reaction of the patient, or of later complication, without mention of misadventure at the time of the procedure ==

== ENCOUNTER → 2021-09-13 | Outpatient (CLI) | payer OTHER | LOC: HYPER 07:59 | PROVIDERS: ATTEND Emergency Medicine Emergency Medical Services | DX: T87.89 Other complications of amputation stump (principal); E11.621 Type 2 diabetes mellitus with foot ulcer; L97.512 Non-pressure chronic ulcer of other part of right foot with fat layer exposed; E11.69 Type 2 diabetes mellitus with other specified complication; M86.172 Other acute osteomyelitis, left ankle and foot; E11.40 Type 2 diabetes mellitus with diabetic neuropathy, unspecified; L84 Corns and callosities; R60.9 Edema, unspecified; I89.0 Lymphedema, not elsewhere classified; M19.90 Unspecified osteoarthritis, unspecified site; J45.909 Unspecified asthma, uncomplicated; I10 Essential (primary) hypertension; M06.9 Rheumatoid arthritis, unspecified; F41.9 Anxiety disorder, unspecified; F31.9 Bipolar disorder, unspecified; Z79.4 Long term (current) use of insulin; Z87.891 Personal history of nicotine dependence; Z79.899 Other long term (current) drug therapy; Y83.5 Amputation of limb(s) as the cause of abnormal reaction of the patient, or of later complication, without mention of misadventure at the time of the procedure ==

== ENCOUNTER → 2021-10-21 | Outpatient (CLI) | payer OTHER | LOC: HYPER 08:12 | PROVIDERS: ATTEND Emergency Medicine Emergency Medical Services | DX: E11.621 Type 2 diabetes mellitus with foot ulcer (principal); L89.893 Pressure ulcer of other site, stage 3; L97.512 Non-pressure chronic ulcer of other part of right foot with fat layer exposed; E11.42 Type 2 diabetes mellitus with diabetic polyneuropathy; E11.69 Type 2 diabetes mellitus with other specified complication; M86.171 Other acute osteomyelitis, right ankle and foot; R60.9 Edema, unspecified; L84 Corns and callosities; R21 Rash and other nonspecific skin eruption; M19.90 Unspecified osteoarthritis, unspecified site; J45.909 Unspecified asthma, uncomplicated; I10 Essential (primary) hypertension; M06.9 Rheumatoid arthritis, unspecified; E66.9 Obesity, unspecified; F41.9 Anxiety disorder, unspecified; Z79.4 Long term (current) use of insulin; F31.9 Bipolar disorder, unspecified; Z68.36 Body mass index [BMI] 36.0-36.9, adult; Z87.891 Personal history of nicotine dependence; Z79.899 Other long term (current) drug therapy; Z89.512 Acquired absence of left leg below knee ==

== ENCOUNTER → 2021-11-18 | Outpatient (CLI) | payer OTHER | LOC: HYPER 07:53 | PROVIDERS: ATTEND Emergency Medicine Emergency Medical Services | DX: T81.89XD Other complications of procedures, not elsewhere classified, subsequent encounter (principal); E11.621 Type 2 diabetes mellitus with foot ulcer; L89.893 Pressure ulcer of other site, stage 3; L97.512 Non-pressure chronic ulcer of other part of right foot with fat layer exposed; R60.9 Edema, unspecified; E11.40 Type 2 diabetes mellitus with diabetic neuropathy, unspecified; E11.69 Type 2 diabetes mellitus with other specified complication; M86.8X7 Other osteomyelitis, ankle and foot; L84 Corns and callosities; M19.90 Unspecified osteoarthritis, unspecified site; J45.909 Unspecified asthma, uncomplicated; M06.9 Rheumatoid arthritis, unspecified; E66.9 Obesity, unspecified; F41.9 Anxiety disorder, unspecified; F31.9 Bipolar disorder, unspecified; Z87.891 Personal history of nicotine dependence; Z79.4 Long term (current) use of insulin; Z79.84 Long term (current) use of oral hypoglycemic drugs; Z89.512 Acquired absence of left leg below knee; Z79.899 Other long term (current) drug therapy; Z89.421 Acquired absence of other right toe(s); Y83.8 Other surgical procedures as the cause of abnormal reaction of the patient, or of later complication, without mention of misadventure at the time of the procedure ==